=== PATIENT | female | born 1950 | race Caucasian/White ===

== ENCOUNTER 2018-08-16 16:59 | Observation (INO) ==
[2018-08-16 17:06] VITALS: BMI 31.3
--- NOTE | 2018-08-16 17:19 | DR.CP ---
HPI Time Seen Time Seen by Provider: 08/16/18 17:11 PCP Primary Care Physician: ANGELA HPI Comment HPI Comment: Patient reports that she had left sided chest pain that was very bad; it made her jaw hurt; the pain was unbearable. She took one NTG and it made the pain better. She is scheduled to go to [facility] Thursday or for a stress test, Echo. She had a equipment monitor phototypesetting but was discontinued. She states that she hurts all the time but a 10/10 when the pain hits. Complaint Chief Complaint Doctor Comments: Chest pain Chief Complaint:: "I HAD CHEST PAIN BUT IT'S BETTER NOW AFTER I TOOK THE NITRO TABLET." Self Treatment fo Chief Complaint: NONE Source History Provided: Patient Mode of Arrival Mode of Arrival: Stretcher Timing Onset of Chief Complaint: 08/16/18 PMH PMH Past Medical History: Yes Past Medical History: Arthritis and Hypertension Past Surgical History: Yes Surgical History: Cholecystectomy and Hysterectomy Family History History of Family Medical Conditions: Yes Family Medical History: Diabetes Mellitus and Hypertension Social History Does patient currently use any type of tobacco product: No Have you used tobacco products in the last 12 months: No Type of Tobacco Use: None Does any household member use tobacco: No Alcohol Use: None Do you use any recreational Drugs:: No Lives With: Spouse Lives Where: Home infectious screening In the last 2 months have you had wt loss of >10#?: NO Have you had fever, night sweats or hemotysis?: No Have you traveled outside the country in the last 6 months?: No Isolation: Standard ROS Review of Systems Constitutional: No Symptoms Reported Eyes: No Symptoms Reported ENTM: No Symptoms Reported Respiratoy: No Symptoms Reported Cardiovascular: See HPI and Chest Pain Genitourinary: No Symptoms Reported Neurological: No Symptoms Reported Musculoskeletal: Chest wall Integumentary: No Symptoms Reported Hematologic/Lymphatic: No Symptoms Reported Endocrine: No Symptoms Reported Psychiatric: Depression All Other Systems: Reviewed and Negative PE Vitals Vitals: Temperature 98.0 F Pulse Rate [Apical] 60 Pulse Rate 68 Respiratory Rate 20 Blood Pressure [Left Arm] 159/69 Blood Pressure [Right Arm] 173/80 Blood Pressure 141/67 O2 Sat by Pulse Oximetry 98 General Limitations: No Limitations General Appearance: Alert and In No Apparent Distress Head Head Exam: Normal Inspection, Atraumatic and Normocephalic Eyes Eye exam: Normal Appearance, PERRL and EOMI Chest Chest Inspection: Normal Inspection and Symmetric Chest Wall Rise Respiratory Respiratory Exam: Normal Lung Sounds Bilat and Accessory Muscle Use Respiratory Exam: Bilateral: Clear to Auscultation Cardiovascular Cardiovascular Exam: Regular Rate and Normal Rhythm Edema: Normal Abdominal Exam Abdominal Exam: Normal Inspection, Normal Bowel Sounds and Soft Extremities Extremities Exam: Normal Inspection and Full ROM Back Back Exam: Normal Inspection and Full ROM Neurologic Neurological Exam: Alert, Oriented X3 and CN II-XII Intact Psychiatric Psychiatric Exam: Normal Affect and Normal Mood Skin Skin Exam: Warm, Dry and Intact MDM Differential Diagnosis Differential Diagnosis: Angina, Chest Wall Pain, CHF and Pericarditis ROR Labs Reviewed Result Diagrams: 08/16/18 17:08/16/18 17:29 Laboratory: WBC 10.3 X10^3/uL (3.6-10.0) H 08/16/18 17: RBC 4.43 X10^6/uL (3.5-5.4) 08/16/18 17: Hgb 12.8 g/dL (12.0-16.0) 08/16/18 17: Hct 37.4 % (36.0-47.0) 08/16/18 17: MCV 84.4 fL (80.0-100.0) 08/16/18 17: MCH 28.8 pg (27.0-34.0) 08/16/18 17: MCHC 34.1 g/dL (33.0-35.0) 08/16/18 17: RDW 13.4 % (11.6-16.5) 08/16/18 17: Plt Count 191 X10^3/uL (150.0-450.0) 08/16/18 17: MPV 9.2 fL (7.4-11.0) 08/16/18 17: Neut % (Auto) 30.9 % (42.0-75.0) L 08/16/18 17: Lymph % (Auto) 59.4 % (21.0-51.0) H 08/16/18 17: [place] % (Auto) 7.2 % (0.0-13.0) 08/16/18 17: Eos % (Auto) 1.8 % (0.9-2.9) 08/16/18 17:29 Baso % (Auto) 0.7 % (0.2-1.0) 08/16/18 17:29 Neut # (Auto) 3.2 x10^3/uL (2.2-4.8) 08/16/18 17:29 Lymph # (Auto) 6.1 X10^3/uL (1.3-2.9) H 08/16/18 17:29 [place] # (Auto) 0.7 x10^3/uL (0.3-0.8) 08/16/18 17:29 Eos # (Auto) 0.2 x10^3/uL (0.0-0.2) 08/16/18 17:29 Baso # (Auto) 0.1 X10^3/uL (0.0-0.1) 08/16/18 17:29 Absolute Nucleated RBC 0.0 /100WBC 08/16/18 17:29 Sodium 139 mmol/L (136-145) 08/16/18 17:29 Corrected Sodium 140 mmol/L (136-145) 08/16/18 17:29 Potassium 3.4 mmol/L (3.5-5.1) L 08/16/18 17:29 Chloride 102 mmol/L (98-107) 08/16/18 17:29 Carbon Dioxide 26.7 mmol/L (21-32) 08/16/18 17:29 BUN 15 mg/dL (7-18) 08/16/18 17:29 Creatinine 0.88 mg/dL (0.55-1.02) 08/16/18 17:29 Est GFR (MDRD) Af Amer > 60 (>60) 08/16/18 17:29 Est GFR (MDRD) Non-Af > 60 (>60) 08/16/18 17:29 Glucose 145 mg/dL (65-99) H 08/16/18 17:29 Calcium 9.8 mg/dL (8.5-10.1) 08/16/18 17:29 Corrected Calcium TNP 08/16/18 17:29 Magnesium 2.0 mg/dL (1.7-2.9) 08/16/18 17:29 Total Bilirubin 0.40 mg/dL (0.2-1.0) 08/16/18 17:29 AST 49 Units/L (15-37) H 08/16/18 17:29 ALT 35 Units/L (12-78) 08/16/18 17:29 Alkaline Phosphatase 93 Units/L (46-116) 08/16/18 17:29 Creatine Kinase 133 Units/L (26-192) 08/16/18 23:10 CK-MB (CK-2) < 1.0 ng/mL (0-4.0) 08/16/18 23:10 CK/CKMB % Calc 0.8 % (<4) 08/16/18 23:10 Troponin I < 0.02 ng/mL (0-1.5) 08/16/18 23:10 Total Protein 7.6 g/dL (6.4-8.2) 08/16/18 17: Albumin 3.6 g/dL (3.4-5.0) 08/16/18 17: Globulin 4.0 g/dL (2.5-4.5) 08/16/18 17: Albumin/Globulin Ratio 0.9 Ratio (1.1-2.1) L 08/16/18 17:29 Specimen Type Clean catch urine 08/16/18 20: Urine Color Yellow (YELLOW) 08/16/18 20: Urine Appearance Slightly hazy (CLEAR) 08/16/18 20:30 Urine pH 5.0 (5.0 - 8.0) 08/16/18 20:30 Ur Specific [place] 1.015 (1.000-1.030) 08/16/18 20:30 Urine Protein Negative (NEGATIVE) 08/16/18 20: Urine Glucose (UA) Negative (NEGATIVE) 08/16/18 20:30 Urine Ketones Negative (NEGATIVE) 08/16/18 20:30 Urine Occult Blood 2+ (NEGATIVE) 08/16/18 20: Urine Nitrite Negative (NEGATIVE) 08/16/18 20: Urine Bilirubin Negative (NEGATIVE) 08/16/18 20: Urine Urobilinogen Normal (NORMAL) 08/16/18 20:30 Ur Leukocyte Esterase 2+ (NEGATIVE) 08/16/18 20:30 Urine RBC 5-10 /HPF (NONE SEEN) 08/16/18 20:30 Urine WBC 5-10 /HPF (NONE SEEN) 08/16/18 20:30 Ur Squamous Epith Cells Few /HPF (NEGATIVE) 08/16/18 20:30 Urine Bacteria 1+ /HPF (NEGATIVE) 08/16/18 20:30 Ur Culture Indicated? Yes/culture set up 08/16/18 20:30
[2018-08-16 17:41] LABS: BASOPHILS # (AUTO) 0.1 X10^3/uL (0.0-0.1); BASOPHILS % (AUTO) 0.7 % (0.2-1.0); EOSINOPHILS # (AUTO) 0.2 x10^3/uL (0.0-0.2); EOSINOPHILS % (AUTO) 1.8 % (0.9-2.9); HEMATOCRIT 37.4 % (36.0-47.0); HEMOGLOBIN 12.8 g/dL (12.0-16.0); LYMPHOCYTES # (AUTO) 6.1 X10^3/uL (1.3-2.9); LYMPHOCYTES % (AUTO) 59.4 % (21.0-51.0); MEAN CORPUSCULAR HEMOGLOBIN 28.8 pg (27.0-34.0); MEAN CORPUSCULAR HGB CONC 34.1 g/dL (33.0-35.0); MEAN CORPUSCULAR VOLUME 84.4 fL (80.0-100.0); MEAN PLATELET VOLUME 9.2 fL (7.4-11.0); MONOCYTES # (AUTO) 0.7 x10^3/uL (0.3-0.8); MONOCYTES % (AUTO) 7.2 % (0.0-13.0); NEUTROPHILS # (AUTO) 3.2 x10^3/uL (2.2-4.8); NEUTROPHILS % (AUTO) 30.9 % (42.0-75.0); PLATELET COUNT 191 X10^3/uL (150.0-450.0); RED BLOOD COUNT 4.43 X10^6/uL (3.5-5.4); RED CELL DISTRIBUTION WIDTH 13.4 % (11.6-16.5); WHITE BLOOD COUNT 10.3 X10^3/uL (3.6-10.0)
[2018-08-16 17:58] LABS: ALANINE AMINOTRANSFERASE 35 Units/L (12-78); ALBUMIN 3.6 g/dL (3.4-5.0); ALKALINE PHOSPHATASE 93 Units/L (46-116); ASPARTATE AMINO TRANSFERASE 49 Units/L (15-37); BLOOD UREA NITROGEN 15 mg/dL (7-18); CALCIUM 9.8 mg/dL (8.5-10.1); CARBON DIOXIDE 26.7 mmol/L (21-32); CHLORIDE 102 mmol/L (98-107); CKMB % 0.8 % (<4); COR NA(FOR HYPERGLY) 140 mmol/L (136-145); CREATINE KINASE 134 Units/L (26-192); CREATINE KINASE MB 1.1 ng/mL (0-4.0); CREATININE 0.88 mg/dL (0.55-1.02); SODIUM 139 mmol/L (136-145); TOTAL PROTEIN 7.6 g/dL (6.4-8.2); TROPONIN I < 0.02 ng/mL (0-1.5); eGFR NON BLACK RACES > 60 (>60)
--- NOTE | 2018-08-16 18:40 | RAD ---
STUDY: CHEST, ONE VIEW History: Acute chest pain. Shortness of breath. Comparison: November 20, 2017. Findings: The trachea is midline. The lungs are clear of consolidation, significant infiltrate, effusion, or pneumothorax. The cardiac silhouette, mediastinum and osseous structures are unremarkable. IMPRESSION: 1. No evidence of acute cardiopulmonary abnormality. Reported By:
[2018-08-16] MEDS: VOLTAREN 1 % GEL MULTI DOSE TUBE TOP SCH (20:17)
[2018-08-16] MEDS: PLAQUENIL PO SCH (20:17)
[2018-08-16 21:06] LABS: BILIRUBIN,URINE NEGATIVE (NEGATIVE); BLOOD/HEMOGLOBIN,URINE 2+ (NEGATIVE); GLUCOSE, URINE NEGATIVE (NEGATIVE); KETONES,URINE NEGATIVE (NEGATIVE); LEUKOCYTE ESTERASE ,URINE 2+ (NEGATIVE); NITRITES,URINE NEGATIVE (NEGATIVE); PROTEIN,URINE NEGATIVE (NEGATIVE); UROBILINOGEN,URINE NORMAL (NORMAL)
[2018-08-16 21:10] LABS: APPEARANCE,URINE SLIGHTLY HAZY (CLEAR); COLOR,URINE YELLOW (YELLOW)
[2018-08-16 21:11] LABS: BACTERIA,URINE 1+ /HPF (NEGATIVE); SQUAMOUS EPITHELIAL CELL,UR FEW /HPF (NEGATIVE)
[2018-08-16] MEDS: XANAX PO SCH (21:21)
[2018-08-16] MEDS: FLEXERIL TAB 10 MG PO SCH (21:21)
[2018-08-16] MEDS ORDERED: KLOR-CON PO PRN (21:22)
[2018-08-16] MEDS ORDERED: K-DUR TAB 20 MEQ PO PRN (21:22)
[2018-08-16] MEDS ORDERED: POTASSIUM CHL 60 MEQ/NS 0.45% 500 ML IV PRN (21:22)
[2018-08-16] MEDS ORDERED: POTASSIUM CHLORIDE LIQ 20 MEQ UDC PO PRN (21:22)
[2018-08-16] MEDS ORDERED: MICRO K EXTEN CAP 10 MEQ PO PRN (21:22)
[2018-08-16] MEDS ORDERED: MAGNESIUM SULFATE 1 GRAM/100 mL PREMIX 1 GM/100 ML BAG IV PRN (21:22)
[2018-08-16] MEDS ORDERED: POTASSIUM CHL 40 MEQ/NS 0.45% 500 ML IV PRN (21:22)
[2018-08-16] MEDS ORDERED: K-RIDER 10 MEQ/NS 100 ML 10 MEQ/100 ML BAG IV PRN (21:22)
[2018-08-16 23:42] LABS: CKMB % 0.8 % (<4); CREATINE KINASE 133 Units/L (26-192); CREATINE KINASE MB < 1.0 ng/mL (0-4.0); TROPONIN I < 0.02 ng/mL (0-1.5)
[2018-08-17] MEDS ORDERED: ROCEPHIN VIAL 1 GRAM ONE (01:40)
[2018-08-17] MEDS: ROCEPHIN VIAL 1 GRAM IVP SCH ×2 (02:00→08:29)
[2018-08-17] MEDS: XANAX PO SCH (05:40)
[2018-08-17] MEDS: FLEXERIL TAB 10 MG PO SCH (05:40)
[2018-08-17 05:41] LABS: CHOL/HDL RATIO 3.8 (0.0-5.0); CHOLESTEROL 106 mg/dL (0-200); CKMB % 0.9 % (<4); CREATINE KINASE 114 Units/L (26-192); HDL CHOLESTEROL 28 mg/dL (40-60); TRIGLYCERIDES 127 mg/dL (0-150); TROPONIN I < 0.02 ng/mL (0-1.5)
[2018-08-17 07:53] VITALS: BP 136/62
[2018-08-17] MEDS ORDERED: PHARMACY CONSULT - DOSE _____ XX SCH (08:00)
[2018-08-17] MEDS: PLAQUENIL PO SCH (08:29)
[2018-08-17] MEDS: VOLTAREN 1 % GEL MULTI DOSE TUBE TOP SCH (08:43)
[2018-08-17] MEDS ORDERED: PROTONIX TAB 40 MG PO SCH (09:00)
[2018-08-17] MEDS ORDERED: ZyrTEC TAB 10 MG PO SCH (09:00)
[2018-09-15] MEDS ORDERED: VITAMIN B-12 INJ IM SCH (09:00)
== END 2018-08-17 11:15 | disposition home or self-care (01) ==
LOC: ER 17:00 → MED/SURG 17:00
PROVIDERS: ADMIT Obstetrics & Gynecology Obstetrics; ATTEND Obstetrics & Gynecology Obstetrics
DX: E11.65 Type 2 diabetes mellitus with hyperglycemia; K21.9 Gastro-esophageal reflux disease without esophagitis; G89.29 Other chronic pain; R07.9 Chest pain, unspecified; M35.3 Polymyalgia rheumatica; N39.0 Urinary tract infection, site not specified; R94.31 Abnormal electrocardiogram [ECG] [EKG]; F41.8 Other specified anxiety disorders
CPT/HCPCS: 36415; 71010; 71045; 80053; 80061; 81001; 82550; 82553; 83735; 84484; 85025; 87086; 93005; 94760; 96365; 96374; 99284; A4216; G0378; J0696

== ENCOUNTER 2020-04-09 12:37 | Inpatient (IN) ==
[2020-04-09 12:51] VITALS: BMI 33.7
[2020-04-09] MEDS ORDERED: ACCUNEB 1.25 MG NEBULE NEB ONE (13:07)
[2020-04-09] MEDS ORDERED: DECADRON INJ IVP ONE (13:07)
--- NOTE | 2020-04-09 13:15 | DR.SOBA ---
HPI Time Seen Time Seen by Provider: 04/09/20 12:43 Complaints Chief Complaint Doctors Comments: cc; SOB hpi: pt presents via EMS secondary to SPB. She was seen in this ED on 04/06 and diagnosed with COVID and very mild pneumonia. She states she is getting worse + WILLIS no orthopnea cough is dry no hemoptysis she states she is very weak gets worse with any exertion get better with rest PMH PMH Past Medical History: Hypertension Past Surgical History: Yes Surgical History: Unknown Family History Family Medical History: Diabetes Mellitus and Hypertension Social History Do you use any recreational Drugs:: No ROS Review of Systems Constitutional: Chills, Diaphoresis, Fever, Malaise, Weakness, Fatigue and Loss of Appetite Eyes: No Symptoms Reported ENTM: No Symptoms Reported Respiratoy: Non-Productive Cough and Short of Breath; negative Hemoptysis Cardiovascular: No Symptoms Reported Gastrointestinal/Abdominal: Food Intolerance Genitourinary: No Symptoms Reported Neurological: No Symptoms Reported Musculoskeletal: Muscle Pain Integumentary: No Symptoms Reported Hematologic/Lymphatic: No Symptoms Reported Endocrine: No Symptoms Reported Psychiatric: No Symptoms Reported All Other Systems: Reviewed and Negative PE Vital Signs Vitals: Temperature 98.2 F Pulse Rate 81 Respiratory Rate 24 Blood Pressure [Left Arm] 136/62 Blood Pressure [Right Arm] 139/63 Blood Pressure 147/65 O2 Sat by Pulse Oximetry 94 General Limitations: No Limitations General Appearance: Alert, In No Apparent Distress and Anxious Head Head Exam: Normal Inspection and Atraumatic Eyes Eye exam: Normal Appearance, PERRL and EOMI; negative Scleral Icterus and Conjunctival Injection ENT ENT Exam: Normal Exam, Normal Oropharynx, Normal External Ear Exam and Mucous Membranes Moist Neck Neck Exam: Normal Inspection, Full ROM and Trachea Midline; negative Tenderness, Meningismus, Lymphadenopathy and Thyromegaly Chest Chest Inspection: Symmetric Chest Wall Rise Respiratory Respiratory Exam: Left: Rhonchi and Left: Crackles and Lower: Rhonchi and Lower: Crackles Cardiovascular Cardiovascular Exam: Regular Rate and Normal Rhythm Abdominal Exam Abdominal Exam: Normal Inspection, Normal Bowel Sounds and Soft Extremities Extremities Exam: Normal Inspection and Full ROM; negative Tenderness Back Back Exam: Normal Inspection and Full ROM; negative Tenderness Neurologic Neurological Exam: Alert, Oriented X3 and Normal Gait Psychiatric Psychiatric Exam: Normal Affect and Anxious; negative Depressed and Agitated Skin Skin Exam: Warm, Dry, Intact and Normal Color COURSE Reevaluation 1st: Improved (Dr Jimenez accepted 1531) 2nd: Worsened ROR Labs Reviewed Laboratory Results Reviewed?: Yes Result Diagrams: 04/09/20 13:25 04/09/20 13:25 Laboratory: WBC 7.3 X10^3/uL (3.6-10.0) 04/09/20 13:25 RBC 4.59 X10^6/uL (3.5-5.4) 04/09/20 13:25 Hgb 12.8 g/dL (12.0-16.0) 04/09/20 13:25 Hct 38.2 % (36.0-47.0) 04/09/20 13:25 MCV 83.2 fL (80.0-100.0) 04/09/20 13:25 MCH 27.8 pg (27.0-34.0) 04/09/20 13:25 MCHC 33.4 g/dL (33.0-35.0) 04/09/20 13:25 RDW 13.8 % (11.6-16.5) 04/09/20 13:25 Plt Count 172 X10^3/uL (150.0-450.0) 04/09/20 13:25 MPV 8.6 fL (7.4-11.0) 04/09/20 13:25 Neut % (Auto) 55.2 % (42.0-75.0) 04/09/20 13:25 Lymph % (Auto) 35.6 % (21.0-51.0) 04/09/20 13:25 [place] % (Auto) 8.8 % (0.0-13.0) 04/09/20 13:25 Eos % (Auto) 0.1 % (0.9-2.9) L 04/09/20 13:25 Baso % (Auto) 0.3 % (0.2-1.0) 04/09/20 13:25 Neut # (Auto) 4.0 x10^3/uL (2.2-4.8) 04/09/20 13:25 Lymph # (Auto) 2.6 X10^3/uL (1.3-2.9) 04/09/20 13:25 [place] # (Auto) 0.6 x10^3/uL (0.3-0.8) 04/09/20 13:25 Eos # (Auto) 0.0 x10^3/uL (0.0-0.2) 04/09/20 13:25 Baso # (Auto) 0.0 X10^3/uL (0.0-0.1) 04/09/20 13:25 Absolute Nucleated RBC 0.1 /100WBC 04/09/20 13:25 PT 13.8 SECONDS (11.8-14.3) 04/09/20 13:25 INR Target Range - 04/09/20 13:25 INR 1.09 (0.8-1.3) 04/09/20 13:25 APTT 28.2 SECONDS (22.9-36.5) 04/09/20 13:25 PTT Comment - 04/09/20 13:25 D-Dimer 0.53 ug/ml (0.0-0.57) 04/09/20 13:25 Sample Site Rra 04/09/20 14:36 ABG pH 7.430 (7.35-7.45) 04/09/20 14:36 ABG pCO2 46.0 mmHg (35.0-45.0) H 04/09/20 14:36 ABG pO2 80.0 mmHg (80.0-100.0) 04/09/20 14:36 ABG HCO3 30.5 mmol/L (22-26) H* 04/09/20 14:36 ABG O2 Saturation 96.0 % (90-100) 04/09/20 14:36 ABG Base Excess 5.3 mmol/L (-2.0-2.0) H 04/09/20 14:36 Aurelio Test Pos 04/09/20 14:36 A-a Gradient 148.0 mmHg 04/09/20 14:36 FiO2 40.0 04/09/20 14:36 Blood Gas Comments Pt jovany well eb 04/09/20 14:36 Sodium 136 mmol/L (136-145) 04/09/20 13:25 Corrected Sodium TNP 04/09/20 13:25 Potassium 3.7 mmol/L (3.5-5.1) 04/09/20 13:25 Chloride 99 mmol/L (98-107) 04/09/20 13:25 Carbon Dioxide 28.1 mmol/L (21-32) 04/09/20 13:25 BUN 15 mg/dL (7-18) 04/09/20 13:25 Creatinine 0.84 mg/dL (0.55-1.02) 04/09/20 13:25 Est GFR (MDRD) Af Amer > 60 (>60) 04/09/20 13:25 Est GFR (MDRD) Non-Af > 60 (>60) 04/09/20 13:25 Glucose 104 mg/dL (65-99) H 04/09/20 13:25 Calcium 9.0 mg/dL (8.5-10.1) 04/09/20 13:25 Corrected Calcium 9.6 mg/dL (8.5-10.1) 04/09/20 13:25 Magnesium 2.1 mg/dL (1.7-2.9) 04/09/20 13:25 Total Bilirubin 0.40 mg/dL (0.2-1.0) 04/09/20 13:25 AST 28 Units/L (15-37) 04/09/20 13:25 ALT 21 Units/L (12-78) 04/09/20 13:25 Alkaline Phosphatase 78 Units/L (46-116) 04/09/20 13:25 Creatine Kinase 49 Units/L (26-192) 04/09/20 13:25 CK-MB (CK-2) < 1.0 ng/mL (0-4.0) 04/09/20 13:25 CK/CKMB % Calc 2.0 % (<4) 04/09/20 13:25 Troponin I < 0.02 ng/mL (0-1.5) 04/09/20 13:25 B-Natriuretic Peptide 21.3 pg/mL (0-79) 04/09/20 13:25 Total Protein 7.2 g/dL (6.4-8.2) 04/09/20 13:25 Albumin 3.2 g/dL (3.4-5.0) L 04/09/20 13:25 Globulin 4.0 g/dL (2.5-4.5) 04/09/20 13:25 Albumin/Globulin Ratio 0.8 Ratio (1.1-2.1) L 04/09/20 13:25 XRAY XRAY Interpreted by: Radiologist X-ray Results: xr compatible with Covid pna recommend f/u CT ct without interest EKG Rate: 97 [place]: Normal Rhythm: NSR Block: None Hypertrophy: LVH ST: Normal Opioid Opioid Risk Tool Age (Misael box if 16-45): No History of Preadolescent Sexual Abuse: No Total: 0 Total Score Risk Category: Low Risk Copyright: Mejia predicting aberrant behaviors Diagnosis Discharge Problem: Pneumonia, Hypoxia, COVID-19, Acute dyspnea Instructions Forms: Social Distancing
[2020-04-09] MEDS ORDERED: DECADRON INJ ONE (13:18)
[2020-04-09] MEDS ORDERED: ZOFRAN INJ 4 MG VIAL IVP ONE (13:23)
[2020-04-09] MEDS ORDERED: ZOFRAN INJ 4 MG VIAL ONE (13:24)
[2020-04-09] MEDS ORDERED: PROVENTIL NEB TX 0.083% 2.5MG/ 3ML ONE (13:29)
[2020-04-09] MEDS: PROVENTIL NEB TX 0.083% 2.5MG/ 3ML NEB ONE ×2 (13:32→14:52)
--- NOTE | 2020-04-09 13:35 | RAD ---
HISTORYSOB, COVIDSTUDYCHEST, 1 VIEWCOMPARISONChest radiograph from 04/06/2020.TECHNIQUEAP view of the chestFINDINGSCardiac and mediastinal contours are within normal limits. Worsened appearance of bilateral airspace disease compared to prior, predominantly perihilar. Blunted left costophrenic sulcus. No pneumothorax. Nodular right upper lobe opacity measuring 12 mm.IMPRESSIONWorsened airspace disease consistent with COVID 19 pneumonia. Suspect small left pleural effusion.Recommend follow-up CT to evaluate right upper lobe pulmonary nodule.Electronically signed by: Guido Amaya (Apr 09, 2020 13:33:13)
[2020-04-09] MEDS ORDERED: ZITHROMAX INJ 500 MG VIAL 500 MG in NS 250 ML IV 250 ML IV SCH (13:40)
[2020-04-09 13:42] LABS: BASOPHILS % (AUTO) 0.3 % (0.2-1.0); EOSINOPHILS % (AUTO) 0.1 % (0.9-2.9); HEMATOCRIT 38.2 % (36.0-47.0); HEMOGLOBIN 12.8 g/dL (12.0-16.0); LYMPHOCYTES # (AUTO) 2.6 X10^3/uL (1.3-2.9); LYMPHOCYTES % (AUTO) 35.6 % (21.0-51.0); MEAN CORPUSCULAR HEMOGLOBIN 27.8 pg (27.0-34.0); MEAN CORPUSCULAR HGB CONC 33.4 g/dL (33.0-35.0); MEAN CORPUSCULAR VOLUME 83.2 fL (80.0-100.0); MEAN PLATELET VOLUME 8.6 fL (7.4-11.0); MONOCYTES # (AUTO) 0.6 x10^3/uL (0.3-0.8); MONOCYTES % (AUTO) 8.8 % (0.0-13.0); NEUTROPHILS % (AUTO) 55.2 % (42.0-75.0); PLATELET COUNT 172 X10^3/uL (150.0-450.0); RED BLOOD COUNT 4.59 X10^6/uL (3.5-5.4); RED CELL DISTRIBUTION WIDTH 13.8 % (11.6-16.5); WHITE BLOOD COUNT 7.3 X10^3/uL (3.6-10.0)
[2020-04-09 14:10] LABS: BLOOD UREA NITROGEN 15 mg/dL (7-18); CARBON DIOXIDE 28.1 mmol/L (21-32); CHLORIDE 99 mmol/L (98-107); CREATININE 0.84 mg/dL (0.55-1.02); SODIUM 136 mmol/L (136-145); TROPONIN I < 0.02 ng/mL (0-1.5); eGFR NON BLACK RACES > 60 (>60)
[2020-04-09 14:15] LABS: ALANINE AMINOTRANSFERASE 21 Units/L (12-78); ALBUMIN 3.2 g/dL (3.4-5.0); ALKALINE PHOSPHATASE 78 Units/L (46-116); ASPARTATE AMINO TRANSFERASE 28 Units/L (15-37); COR CA(FOR HYPOALB) 9.6 mg/dL (8.5-10.1); CREATINE KINASE 49 Units/L (26-192); CREATINE KINASE MB < 1.0 ng/mL (0-4.0); MAGNESIUM 2.1 mg/dL (1.7-2.9); TOTAL PROTEIN 7.2 g/dL (6.4-8.2)
[2020-04-09] MEDS ORDERED: ZITHROMAX INJ 500 MG VIAL IV ONE (14:15)
[2020-04-09] MEDS ORDERED: NS 500 ML IV 500 ML IV ONE (14:15)
[2020-04-09 14:41] LABS: ABG ALLEN TEST POS; ABG BASE EXCESS 5.3 mmol/L (-2.0-2.0); ABG HCO3 30.5 mmol/L (22-26)
--- NOTE | 2020-04-09 15:04 | CT ---
HISTORYSOB, COVIDSTUDYCHEST W/O CONCOMPARISONNoneTECHNIQUEMultiple axial images of the chest were obtained from the thoracic inlet to the upper abdomen without the administration of IV contrast. Dose reduction techniques including Automated Exposure Control (AEC) and adjustment of mA and kV were utilized.FINDINGSThe mediastinum does not demonstrate significant pathological lymphadenopathy. There is no pericardial effusion observed. The thoracic aorta is normal in its contour without evidence for aneurysmal dilatation.Evaluation of the lung parenchyma demonstrates scattered ground-glass opacities throughout the lungs compatible history of COVID-19 pneumonia.. No pulmonary nodule or mass can be identified. The bony thorax is unremarkable in its appearance . The visualized portions of the upper abdomen are grossly unremarkable .IMPRESSIONScattered ground-glass opacities throughout the lungs compatible history of COVID-19 pneumonia..Electronically signed by: MINDA KYLE (Apr 09, 2020 15:02:58)
[2020-04-09] MEDS ORDERED: PROMETHAZINE DM PO PRN (16:00)
[2020-04-09] MEDS ORDERED: REMDESIVIR 200 MG in NS 250 ML IV 250 ML IV ONE (16:00)
--- NOTE | 2020-04-09 16:21 | DR.SOBA ---
HPI Time Seen Time Seen by Provider: 04/09/20 12:43 Primary Care Physician Primary Care Physician: MANI CEJA Complaints Chief Complaint:: PT C/O > SOB, PT IS COVID POSTIVE OF 2 WEEKS AGO , PT IS ON HOME 02 2 LMP UPON EMS ARRIVAL PT'S O2 IS 87 EMS > PT TO 6 LPM HER SATS > 94%..BR Self Treatment fo Chief Complaint: PT C/O < APPETITE, DIARRHEA, NOT BEING ABLE TO BATHE OR COOK FOOD , PTS LUNGS ARE CLEAR NO DISTRESS NOTED, BR COVID-19 Coronavirus risk:travel/contact w/high risk person: No Has patient experienced Coronavirus symptoms: Yes Coronavirus symptoms experienced: Shortness of Breath Source History Provided: Patient and EMS Mode of Arrival Mode of Arrival: Stretcher Timing Onset of Chief Complaint: 04/08/20 PMH PMH Past Medical History: Yes Past Medical History: Hypertension Past Medical History Comment: LUPUS Past Surgical History: Yes Surgical History: Unknown Family History History of Family Medical Conditions: Yes Family Medical History: Diabetes Mellitus and Hypertension Social History Does patient currently use any type of tobacco product: No Have you used tobacco products in the last 12 months: No Type of Tobacco Use: None Does any household member use tobacco: No Alcohol Use: None Do you use any recreational Drugs:: No Lives With: Family Lives Where: Home Travel Risk Coronavirus risk:travel/contact w/high risk person: No Has patient experienced Coronavirus symptoms: Yes Coronavirus symptoms experienced: Shortness of Breath Infectious screening In the last 2 months have you had wt loss of >10#?: NO Have you had fever, night sweats or hemotysis?: No Have you traveled outside the country in the last 6 months?: No Isolation: Droplet ROS Review of Systems Constitutional: Chills, Diaphoresis, Fever, Malaise, Weakness, Fatigue and Loss of Appetite Eyes: No Symptoms Reported ENTM: No Symptoms Reported Respiratoy: See HPI Cardiovascular: No Symptoms Reported Gastrointestinal/Abdominal: No Symptoms Reported Genitourinary: No Symptoms Reported Neurological: See HPI Musculoskeletal: Muscle Pain Hematologic/Lymphatic: No Symptoms Reported Endocrine: No Symptoms Reported All Other Systems: Reviewed and Negative PE Vital Signs Vitals: Temperature 98.2 F Pulse Rate 79 Respiratory Rate 24 Blood Pressure [Left Arm] 136/62 Blood Pressure [Right Arm] 139/63 Blood Pressure 147/65 O2 Sat by Pulse Oximetry 94 General Limitations: No Limitations General Appearance: Alert and Other (pt appears acutely ill) Head Head Exam: Normal Inspection, Atraumatic and Normocephalic Eyes Eye exam: Normal Appearance, PERRL and EOMI; negative Scleral Icterus ENT ENT Exam: Normal Exam, Normal Oropharynx, Normal External Ear Exam and Mucous Membranes Moist Neck Neck Exam: Normal Inspection, Full ROM and Trachea Midline; negative Tenderness, Meningismus and Lymphadenopathy Chest Chest Inspection: Normal Inspection and Symmetric Chest Wall Rise; negative Tenderness Respiratory Respiratory Exam: negative Accessory Muscle Use and Chest Wall Tenderness Respiratory Exam: Bilateral: Wheezing and Bilateral: Rhonchi Cardiovascular Cardiovascular Exam: Regular Rate, Normal Rhythm and Tachycardia Abdominal Exam Abdominal Exam: Normal Inspection, Normal Bowel Sounds and Soft; negative Distention and Tenderness Extremities Extremities Exam: Normal Inspection, Full ROM and Normal Capillary Refill; negative Tenderness, Edema and Joint Swelling Back Back Exam: Normal Inspection and Full ROM; negative Tenderness Neurologic Neurological Exam: Alert and Oriented X3 Psychiatric Psychiatric Exam: Normal Affect and Normal Mood Skin Skin Exam: Warm and Dry ROR Labs Reviewed Result Diagrams: 04/14/20 04:05 04/14/20 04:05 Laboratory: 04/09/20 13:55 Blood Blood Culture - Preliminary 04/09/20 13:40 Blood Blood Culture - Preliminary WBC 7.3 X10^3/uL (3.6-10.0) 04/09/20 13:25 RBC 4.59 X10^6/uL (3.5-5.4) 04/09/20 13:25 Hgb 12.8 g/dL (12.0-16.0) 04/09/20 13:25 Hct 38.2 % (36.0-47.0) 04/09/20 13:25 MCV 83.2 fL (80.0-100.0) 04/09/20 13:25 MCH 27.8 pg (27.0-34.0) 04/09/20 13:25 MCHC 33.4 g/dL (33.0-35.0) 04/09/20 13:25 RDW 13.8 % (11.6-16.5) 04/09/20 13:25 Plt Count 172 X10^3/uL (150.0-450.0) 04/09/20 13:25 MPV 8.6 fL (7.4-11.0) 04/09/20 13:25 Neut % (Auto) 55.2 % (42.0-75.0) 04/09/20 13:25 Lymph % (Auto) 35.6 % (21.0-51.0) 04/09/20 13:25 [place] % (Auto) 8.8 % (0.0-13.0) 04/09/20 13:25 Eos % (Auto) 0.1 % (0.9-2.9) L 04/09/20 13:25 Baso % (Auto) 0.3 % (0.2-1.0) 04/09/20 13:25 Neut # (Auto) 4.0 x10^3/uL (2.2-4.8) 04/09/20 13:25 Lymph # (Auto) 2.6 X10^3/uL (1.3-2.9) 04/09/20 13:25 [place] # (Auto) 0.6 x10^3/uL (0.3-0.8) 04/09/20 13:25 Eos # (Auto) 0.0 x10^3/uL (0.0-0.2) 04/09/20 13:25 Baso # (Auto) 0.0 X10^3/uL (0.0-0.1) 04/09/20 13:25 Absolute Nucleated RBC 0.1 /100WBC 04/09/20 13:25 PT 13.8 SECONDS (11.8-14.3) 04/09/20 13:25 INR Target Range - 04/09/20 13:25 INR 1.09 (0.8-1.3) 04/09/20 13:25 APTT 28.2 SECONDS (22.9-36.5) 04/09/20 13:25 PTT Comment - 04/09/20 13:25 D-Dimer 0.53 ug/ml (0.0-0.57) 04/09/20 13:25 Sample Site Rra 04/09/20 14:36 ABG pH 7.430 (7.35-7.45) 04/09/20 14:36 ABG pCO2 46.0 mmHg (35.0-45.0) H 04/09/20 14:36 ABG pO2 80.0 mmHg (80.0-100.0) 04/09/20 14:36 ABG HCO3 30.5 mmol/L (22-26) H* 04/09/20 14:36 ABG O2 Saturation 96.0 % (90-100) 04/09/20 14:36 ABG Base Excess 5.3 mmol/L (-2.0-2.0) H 04/09/20 14:36 Aurelio Test Pos 04/09/20 14:36 A-a Gradient 148.0 mmHg 04/09/20 14:36 FiO2 40.0 04/09/20 14:36 Blood Gas Comments Pt jovany well eb 04/09/20 14:36 Sodium 136 mmol/L (136-145) 04/09/20 13:25 Corrected Sodium TNP 04/09/20 13:25 Potassium 3.7 mmol/L (3.5-5.1) 04/09/20 13:25 Chloride 99 mmol/L (98-107) 04/09/20 13:25 Carbon Dioxide 28.1 mmol/L (21-32) 04/09/20 13:25 BUN 15 mg/dL (7-18) 04/09/20 13:25 Creatinine 0.84 mg/dL (0.55-1.02) 04/09/20 13:25 Est GFR (MDRD) Af Amer > 60 (>60) 04/09/20 13:25 Est GFR (MDRD) Non-Af > 60 (>60) 04/09/20 13:25 Glucose 104 mg/dL (65-99) H 04/09/20 13:25 Calcium 9.0 mg/dL (8.5-10.1) 04/09/20 13:25 Corrected Calcium 9.6 mg/dL (8.5-10.1) 04/09/20 13:25 Magnesium 2.1 mg/dL (1.7-2.9) 04/09/20 13:25 Total Bilirubin 0.40 mg/dL (0.2-1.0) 04/09/20 13:25 AST 28 Units/L (15-37) 04/09/20 13:25 ALT 21 Units/L (12-78) 04/09/20 13:25 Alkaline Phosphatase 78 Units/L (46-116) 04/09/20 13:25 Creatine Kinase 49 Units/L (26-192) 04/09/20 13:25 CK-MB (CK-2) < 1.0 ng/mL (0-4.0) 04/09/20 13:25 CK/CKMB % Calc 2.0 % (<4) 04/09/20 13:25 Troponin I < 0.02 ng/mL (0-1.5) 04/09/20 13:25 B-Natriuretic Peptide 21.3 pg/mL (0-79) 04/09/20 13:25 Total Protein 7.2 g/dL (6.4-8.2) 04/09/20 13:25 Albumin 3.2 g/dL (3.4-5.0) L 04/09/20 13:25 Globulin 4.0 g/dL (2.5-4.5) 04/09/20 13:25 Albumin/Globulin Ratio 0.8 Ratio (1.1-2.1) L 04/09/20 13:25 EKG Rate: 97 [place]: Normal Rhythm: NSR Block: None Hypertrophy: LVH ST: Normal Opioid Opioid Risk Tool Age (Misael box if 16-45): No History of Preadolescent Sexual Abuse: No Total: 0 Total Score Risk Category: Low Risk Copyright: Roberto NERI predicting aberrant behaviors Diagnosis Discharge Problem: Pneumonia, Hypoxia, COVID-19, Acute dyspnea Instructions Forms: Excuse From Work or School Precautions for COVID19 Patient Portal Social Distancing
[2020-04-09] MEDS: NS 1000 ML 1,000 ML IV SCH (16:50)
[2020-04-09] MEDS ORDERED: NS 1000 ML 1,000 ML ONE (16:50)
[2020-04-09] MEDS ORDERED: NS 250 ML IV 250 ML IV ONE (16:52)
[2020-04-09] MEDS ORDERED: REMDESIVIR IV ONE (16:52)
[2020-04-09] MEDS: NEURONTIN CAP 300 MG PO SCH ×2 (17:02→20:37)
[2020-04-09] MEDS ORDERED: IVERMECTIN ONE (17:36)
[2020-04-09] MEDS: IVERMECTIN PO SCH (17:37)
[2020-04-09] MEDS ORDERED: MICRO K EXTEN CAP 10 MEQ PO ONE (19:21)
[2020-04-09] MEDS ORDERED: VIBRAMYCIN PO ONE (19:21)
[2020-04-09] MEDS ORDERED: NS 100 ML IV 100 ML IV ONE (19:22)
[2020-04-09] MEDS ORDERED: ASCORBIC ACID INJ MULTI-DOSE VIAL IV ONE (19:22)
[2020-04-09] MEDS ORDERED: ZINC SULFATE ONE (19:22)
[2020-04-09] MEDS ORDERED: THIAMINE HCL INJ ONE (19:22)
[2020-04-09] MEDS ORDERED: ELIQUIS ONE (19:22)
[2020-04-09] MEDS ORDERED: XANAX ONE (19:22)
[2020-04-09] MEDS ORDERED: PEPCID TAB 40 MG ONE (19:22)
[2020-04-09] MEDS: ELIQUIS PO SCH (20:36)
[2020-04-09] MEDS: ASCORBIC ACID INJ MULTI-DOSE VIAL 1,500 MG in NS 100 ML IV 100 ML IV SCH (20:36)
[2020-04-09] MEDS: MICRO K EXTEN CAP 10 MEQ PO SCH (20:37)
[2020-04-09] MEDS: VIBRAMYCIN PO SCH (20:37)
[2020-04-09] MEDS: THIAMINE HCL INJ IVP SCH (20:37)
[2020-04-09] MEDS: PEPCID TAB 40 MG PO SCH (20:37)
[2020-04-09] MEDS: ZINC SULFATE PO SCH (20:38)
[2020-04-09] MEDS: PULMICORT NEB TX 0.5 MG NEB SCH (20:50)
[2020-04-09] MEDS ORDERED: ERGOCALCIFEROL PO SCH (21:00)
[2020-04-09] MEDS ORDERED: LIPITOR TAB 10 MG PO SCH (21:00)
[2020-04-09] MEDS: XANAX PO SCH (21:40)
[2020-04-10] MEDS ORDERED: ASCORBIC ACID INJ MULTI-DOSE VIAL IV ONE ×4 (02:13→19:20)
[2020-04-10] MEDS ORDERED: NS 100 ML IV 100 ML IV ONE ×4 (02:13→19:20)
[2020-04-10] MEDS: ASCORBIC ACID INJ MULTI-DOSE VIAL 1,500 MG in NS 100 ML IV 100 ML IV SCH ×4 (02:29→20:03)
[2020-04-10] MEDS ORDERED: XANAX ONE ×3 (05:07→19:20)
[2020-04-10] MEDS: XANAX PO SCH ×3 (05:49→21:00)
[2020-04-10 06:07] LABS: BASOPHILS % (AUTO) 0.1 % (0.2-1.0); HEMATOCRIT 36.8 % (36.0-47.0); HEMOGLOBIN 12.2 g/dL (12.0-16.0); LYMPHOCYTES # (AUTO) 1.9 X10^3/uL (1.3-2.9); LYMPHOCYTES % (AUTO) 39.8 % (21.0-51.0); MEAN CORPUSCULAR HEMOGLOBIN 27.9 pg (27.0-34.0); MEAN CORPUSCULAR HGB CONC 33.2 g/dL (33.0-35.0); MEAN PLATELET VOLUME 8.6 fL (7.4-11.0); MONOCYTES # (AUTO) 0.5 x10^3/uL (0.3-0.8); NEUTROPHILS # (AUTO) 2.3 x10^3/uL (2.2-4.8); NEUTROPHILS % (AUTO) 49.1 % (42.0-75.0); PLATELET COUNT 175 X10^3/uL (150.0-450.0); RED BLOOD COUNT 4.38 X10^6/uL (3.5-5.4); RED CELL DISTRIBUTION WIDTH 13.9 % (11.6-16.5); WHITE BLOOD COUNT 4.7 X10^3/uL (3.6-10.0)
[2020-04-10 06:32] LABS: ALANINE AMINOTRANSFERASE 21 Units/L (12-78); ALBUMIN 2.8 g/dL (3.4-5.0); ALKALINE PHOSPHATASE 70 Units/L (46-116); ASPARTATE AMINO TRANSFERASE 25 Units/L (15-37); BLOOD UREA NITROGEN 17 mg/dL (7-18); CALCIUM 8.9 mg/dL (8.5-10.1); CARBON DIOXIDE 29.7 mmol/L (21-32); CHLORIDE 103 mmol/L (98-107); COR CA(FOR HYPOALB) 9.9 mg/dL (8.5-10.1); COR NA(FOR HYPERGLY) 141 mmol/L (136-145); CREATININE 0.88 mg/dL (0.55-1.02); SODIUM 140 mmol/L (136-145); TOTAL PROTEIN 6.6 g/dL (6.4-8.2); eGFR NON BLACK RACES > 60 (>60)
[2020-04-10] MEDS: LEXAPRO PO SCH (08:02)
[2020-04-10] MEDS: NEURONTIN CAP 300 MG PO SCH ×4 (08:03→20:08)
[2020-04-10] MEDS: MOBIC TAB 15 MG PO SCH (08:03)
[2020-04-10] MEDS: SYNTHROID 75 mcg TAB PO SCH (08:04)
[2020-04-10] MEDS: ZIAC 5/6.25 MG PO SCH (08:04)
[2020-04-10] MEDS ORDERED: MICRO K EXTEN CAP 10 MEQ PO ONE ×2 (08:08→19:19)
[2020-04-10] MEDS ORDERED: PEPCID TAB 20 MG ONE (08:08)
[2020-04-10] MEDS ORDERED: DECADRON TAB ONE (08:09)
[2020-04-10] MEDS ORDERED: THIAMINE HCL INJ ONE ×2 (08:09→19:20)
[2020-04-10] MEDS ORDERED: VIBRAMYCIN PO ONE ×2 (08:09→19:20)
[2020-04-10] MEDS ORDERED: LIPITOR TAB 80 MG ONE (08:09)
[2020-04-10] MEDS ORDERED: ZINC SULFATE ONE ×2 (08:09→19:20)
[2020-04-10] MEDS ORDERED: REMDESIVIR IV ONE (08:10)
[2020-04-10] MEDS ORDERED: ELIQUIS ONE ×2 (08:10→19:24)
[2020-04-10] MEDS ORDERED: TRICOR TAB 160 MG ONE (08:10)
[2020-04-10] MEDS ORDERED: VITAMIN D3 125 mcg (5,000 UNITS) ONE (08:10)
[2020-04-10] MEDS ORDERED: NS 250 ML IV 250 ML IV ONE (08:11)
[2020-04-10] MEDS ORDERED: PROTONIX INJ 40 MG VIAL ONE (08:11)
[2020-04-10] MEDS: REMDESIVIR 100 MG in NS 250 ML IV 250 ML IV SCH (08:22)
[2020-04-10] MEDS: THIAMINE HCL INJ IVP SCH ×2 (08:22→20:08)
[2020-04-10] MEDS: PROTONIX INJ 40 MG VIAL IVP SCH (08:22)
[2020-04-10] MEDS: DECADRON TAB PO SCH (08:23)
[2020-04-10] MEDS: ELIQUIS PO SCH ×2 (08:24→20:09)
[2020-04-10] MEDS: PEPCID TAB 40 MG PO SCH ×2 (08:25→20:07)
[2020-04-10] MEDS: LIPITOR TAB 80 MG PO SCH (08:25)
[2020-04-10] MEDS: TRICOR TAB 160 MG PO SCH (08:26)
[2020-04-10] MEDS: ZINC SULFATE PO SCH ×2 (08:26→20:07)
[2020-04-10] MEDS: MICRO K EXTEN CAP 10 MEQ PO SCH ×2 (08:26→20:07)
[2020-04-10] MEDS: VIBRAMYCIN PO SCH ×2 (08:27→20:08)
[2020-04-10] MEDS: IVERMECTIN PO SCH (08:33)
[2020-04-10] MEDS ORDERED: VITAMIN D (1.25MG) PO SCH (09:00)
[2020-04-10] MEDS ORDERED: VITAMIN A PO SCH (09:00)
[2020-04-10] MEDS: PULMICORT NEB TX 0.5 MG NEB SCH ×2 (09:15→21:23)
[2020-04-10] MEDS: NS 1000 ML 1,000 ML IV SCH (16:00)
[2020-04-11] MEDS ORDERED: NS 100 ML IV 100 ML IV ONE ×3 (02:39→14:44)
[2020-04-11] MEDS ORDERED: ASCORBIC ACID INJ MULTI-DOSE VIAL IV ONE (02:39)
[2020-04-11] MEDS: ASCORBIC ACID INJ MULTI-DOSE VIAL 1,500 MG in NS 100 ML IV 100 ML IV SCH ×4 (02:56→20:31)
[2020-04-11] MEDS ORDERED: NS 1000 ML 1,000 ML ONE (05:21)
[2020-04-11] MEDS: XANAX PO SCH ×3 (05:33→21:00)
[2020-04-11] MEDS: NS 1000 ML 1,000 ML IV SCH ×3 (05:34→20:40)
[2020-04-11 06:47] LABS: BASOPHILS % (AUTO) 0.1 % (0.2-1.0); EOSINOPHILS % (AUTO) 0.1 % (0.9-2.9); HEMATOCRIT 34.5 % (36.0-47.0); HEMOGLOBIN 11.6 g/dL (12.0-16.0); LYMPHOCYTES # (AUTO) 2.6 X10^3/uL (1.3-2.9); LYMPHOCYTES % (AUTO) 44.6 % (21.0-51.0); MEAN CORPUSCULAR HEMOGLOBIN 28.4 pg (27.0-34.0); MEAN CORPUSCULAR HGB CONC 33.8 g/dL (33.0-35.0); MEAN CORPUSCULAR VOLUME 84.1 fL (80.0-100.0); MEAN PLATELET VOLUME 8.6 fL (7.4-11.0); MONOCYTES # (AUTO) 0.5 x10^3/uL (0.3-0.8); MONOCYTES % (AUTO) 9.5 % (0.0-13.0); NEUTROPHILS # (AUTO) 2.6 x10^3/uL (2.2-4.8); NEUTROPHILS % (AUTO) 45.7 % (42.0-75.0); PLATELET COUNT 175 X10^3/uL (150.0-450.0); RED CELL DISTRIBUTION WIDTH 13.9 % (11.6-16.5); WHITE BLOOD COUNT 5.7 X10^3/uL (3.6-10.0)
[2020-04-11 07:11] LABS: ALANINE AMINOTRANSFERASE 14 Units/L (12-78); ALBUMIN 2.5 g/dL (3.4-5.0); ALKALINE PHOSPHATASE 61 Units/L (46-116); ASPARTATE AMINO TRANSFERASE 27 Units/L (15-37); BLOOD UREA NITROGEN 26 mg/dL (7-18); CALCIUM 8.8 mg/dL (8.5-10.1); CARBON DIOXIDE 30.3 mmol/L (21-32); CHLORIDE 105 mmol/L (98-107); COR NA(FOR HYPERGLY) 142 mmol/L (136-145); SODIUM 141 mmol/L (136-145); eGFR NON BLACK RACES 59 (>60)
[2020-04-11] MEDS ORDERED: MICRO K EXTEN CAP 10 MEQ PO ONE (08:10)
[2020-04-11] MEDS ORDERED: DECADRON TAB ONE (08:11)
[2020-04-11] MEDS ORDERED: LIPITOR TAB 80 MG ONE (08:11)
[2020-04-11] MEDS ORDERED: IVERMECTIN ONE (08:11)
[2020-04-11] MEDS ORDERED: THIAMINE HCL INJ ONE (08:11)
[2020-04-11] MEDS ORDERED: VIBRAMYCIN PO ONE (08:11)
[2020-04-11] MEDS ORDERED: PEPCID TAB 40 MG ONE (08:12)
[2020-04-11] MEDS ORDERED: VITAMIN D3 125 mcg (5,000 UNITS) ONE (08:12)
[2020-04-11] MEDS ORDERED: ZINC SULFATE ONE (08:12)
[2020-04-11] MEDS ORDERED: TRICOR TAB 160 MG ONE (08:12)
[2020-04-11] MEDS ORDERED: ELIQUIS ONE (08:12)
[2020-04-11] MEDS ORDERED: NS 250 ML IV 250 ML IV ONE (08:13)
[2020-04-11] MEDS ORDERED: REMDESIVIR IV ONE (08:13)
[2020-04-11] MEDS ORDERED: PROTONIX INJ 40 MG VIAL ONE (08:13)
[2020-04-11] MEDS: DECADRON TAB PO SCH (08:26)
[2020-04-11] MEDS: ELIQUIS PO SCH ×2 (08:26→20:25)
[2020-04-11] MEDS: MICRO K EXTEN CAP 10 MEQ PO SCH ×2 (08:27→20:27)
[2020-04-11] MEDS: ZINC SULFATE PO SCH ×2 (08:28→20:25)
[2020-04-11] MEDS: IVERMECTIN PO SCH (08:28)
[2020-04-11] MEDS: VITAMIN D3 125 mcg (5,000 UNITS) PO SCH (08:28)
[2020-04-11] MEDS: THIAMINE HCL INJ IVP SCH ×2 (08:29→20:37)
[2020-04-11] MEDS: SYNTHROID 75 mcg TAB PO SCH (08:30)
[2020-04-11] MEDS: LEXAPRO PO SCH (08:30)
[2020-04-11] MEDS: ZIAC 5/6.25 MG PO SCH (08:30)
[2020-04-11] MEDS: TRICOR TAB 160 MG PO SCH (08:31)
[2020-04-11] MEDS: PEPCID TAB 40 MG PO SCH ×2 (08:31→20:26)
[2020-04-11] MEDS: MOBIC TAB 15 MG PO SCH (08:32)
[2020-04-11] MEDS: VIBRAMYCIN PO SCH ×2 (08:32→20:26)
[2020-04-11] MEDS: NEURONTIN CAP 300 MG PO SCH ×4 (08:33→20:27)
[2020-04-11] MEDS: REMDESIVIR 100 MG in NS 250 ML IV 250 ML IV SCH (08:33)
[2020-04-11] MEDS: LIPITOR TAB 80 MG PO SCH (08:34)
[2020-04-11] MEDS: PROTONIX INJ 40 MG VIAL IVP SCH (08:34)
[2020-04-11] MEDS: PULMICORT NEB TX 0.5 MG NEB SCH ×2 (08:45→22:20)
[2020-04-12] MEDS: ASCORBIC ACID INJ MULTI-DOSE VIAL 1,500 MG in NS 100 ML IV 100 ML IV SCH ×4 (02:35→20:38)
[2020-04-12] MEDS: XANAX PO SCH ×3 (05:49→22:15)
--- NOTE | 2020-04-12 06:18 | RAD ---
HISTORYCOVID+STUDYCHEST, 1 [id number]/2021TECHNIQUEAP view of the chestFINDINGSThe cardiac and mediastinal contours appear stable. Mildly worse bilateral airspace disease, worse in the left lung. Blunted costophrenic sulci. No pneumothorax. Soft tissue attenuation limits evaluation.IMPRESSIONInterval worsening of bilateral airspace disease consistent with COVID 19 pneumonia. Suspect small pleural effusions.Electronically signed by: Guido Amaya (Apr 12, 2020 06:17:27)
[2020-04-12 06:30] LABS: BASOPHILS % (AUTO) 0.1 % (0.2-1.0); HEMATOCRIT 34.7 % (36.0-47.0); HEMOGLOBIN 11.6 g/dL (12.0-16.0); LYMPHOCYTES # (AUTO) 2.8 X10^3/uL (1.3-2.9); LYMPHOCYTES % (AUTO) 46.7 % (21.0-51.0); MEAN CORPUSCULAR HEMOGLOBIN 28.1 pg (27.0-34.0); MEAN CORPUSCULAR HGB CONC 33.5 g/dL (33.0-35.0); MEAN CORPUSCULAR VOLUME 83.9 fL (80.0-100.0); MEAN PLATELET VOLUME 8.8 fL (7.4-11.0); MONOCYTES # (AUTO) 0.5 x10^3/uL (0.3-0.8); MONOCYTES % (AUTO) 7.9 % (0.0-13.0); NEUTROPHILS # (AUTO) 2.8 x10^3/uL (2.2-4.8); NEUTROPHILS % (AUTO) 45.3 % (42.0-75.0); PLATELET COUNT 188 X10^3/uL (150.0-450.0); RED BLOOD COUNT 4.13 X10^6/uL (3.5-5.4); RED CELL DISTRIBUTION WIDTH 13.6 % (11.6-16.5); WHITE BLOOD COUNT 6.1 X10^3/uL (3.6-10.0)
[2020-04-12 06:39] LABS: ALANINE AMINOTRANSFERASE 16 Units/L (12-78); ALBUMIN 2.4 g/dL (3.4-5.0); ALKALINE PHOSPHATASE 62 Units/L (46-116); ASPARTATE AMINO TRANSFERASE 27 Units/L (15-37); BLOOD UREA NITROGEN 19 mg/dL (7-18); CALCIUM 8.6 mg/dL (8.5-10.1); CARBON DIOXIDE 31.4 mmol/L (21-32); CHLORIDE 106 mmol/L (98-107); COR CA(FOR HYPOALB) 9.9 mg/dL (8.5-10.1); COR NA(FOR HYPERGLY) 143 mmol/L (136-145); CREATININE 0.83 mg/dL (0.55-1.02); SODIUM 142 mmol/L (136-145); TOTAL PROTEIN 5.8 g/dL (6.4-8.2); eGFR NON BLACK RACES > 60 (>60)
[2020-04-12 07:25] LABS: ABG BASE EXCESS 8.9 mmol/L (-2.0-2.0)
[2020-04-12 07:26] LABS: ABG ALLEN TEST POSS; ABG HCO3 34.1 mmol/L (22-26)
[2020-04-12] MEDS ORDERED: LEXAPRO ONE (08:43)
[2020-04-12] MEDS: PULMICORT NEB TX 0.5 MG NEB SCH ×2 (09:50→20:00)
[2020-04-12] MEDS: BENICAR TAB 40 MG PO SCH ×2 (09:52→10:53)
[2020-04-12] MEDS: DECADRON TAB PO SCH (09:53)
[2020-04-12] MEDS: LEXAPRO PO SCH (09:53)
[2020-04-12] MEDS: ELIQUIS PO SCH ×2 (09:53→20:39)
[2020-04-12] MEDS: IVERMECTIN PO SCH (10:07)
[2020-04-12] MEDS: LIPITOR TAB 80 MG PO SCH (10:07)
[2020-04-12] MEDS: MICRO K EXTEN CAP 10 MEQ PO SCH ×2 (10:08→20:38)
[2020-04-12] MEDS: MOBIC TAB 15 MG PO SCH (10:09)
[2020-04-12] MEDS: NEURONTIN CAP 300 MG PO SCH ×4 (10:10→20:38)
[2020-04-12] MEDS: PEPCID TAB 40 MG PO SCH ×2 (10:10→20:39)
[2020-04-12] MEDS: PROTONIX INJ 40 MG VIAL IVP SCH (10:10)
[2020-04-12] MEDS: SYNTHROID 75 mcg TAB PO SCH (10:12)
[2020-04-12] MEDS: TRICOR TAB 160 MG PO SCH (10:12)
[2020-04-12] MEDS: REMDESIVIR 100 MG in NS 250 ML IV 250 ML IV SCH (10:12)
[2020-04-12] MEDS: THIAMINE HCL INJ IVP SCH ×2 (10:12→20:39)
[2020-04-12] MEDS: VITAMIN D3 125 mcg (5,000 UNITS) PO SCH (10:13)
[2020-04-12] MEDS: VIBRAMYCIN PO SCH ×2 (10:13→20:39)
[2020-04-12] MEDS: ZIAC 5/6.25 MG PO SCH (10:13)
[2020-04-12] MEDS: ZINC SULFATE PO SCH ×2 (10:13→20:40)
[2020-04-12] MEDS: NS 1000 ML 1,000 ML IV SCH (17:51)
[2020-04-12] MEDS: TYLENOL #3 TAB (W/CODEINE) PO PRN (22:16)
[2020-04-13] MEDS: ASCORBIC ACID INJ MULTI-DOSE VIAL 1,500 MG in NS 100 ML IV 100 ML IV SCH ×4 (03:28→20:15)
[2020-04-13 04:45] LABS: ABG ALLEN TEST POS; ABG BASE EXCESS 10.1 mmol/L (-2.0-2.0)
[2020-04-13] MEDS: XANAX PO SCH ×3 (05:27→21:39)
[2020-04-13 06:05] LABS: BASOPHILS % (AUTO) 0.2 % (0.2-1.0); HEMATOCRIT 35.1 % (36.0-47.0); HEMOGLOBIN 11.8 g/dL (12.0-16.0); LYMPHOCYTES # (AUTO) 2.9 X10^3/uL (1.3-2.9); LYMPHOCYTES % (AUTO) 37.8 % (21.0-51.0); MEAN CORPUSCULAR HGB CONC 33.5 g/dL (33.0-35.0); MEAN CORPUSCULAR VOLUME 83.5 fL (80.0-100.0); MEAN PLATELET VOLUME 8.8 fL (7.4-11.0); MONOCYTES # (AUTO) 0.6 x10^3/uL (0.3-0.8); MONOCYTES % (AUTO) 7.7 % (0.0-13.0); NEUTROPHILS # (AUTO) 4.2 x10^3/uL (2.2-4.8); NEUTROPHILS % (AUTO) 54.3 % (42.0-75.0); PLATELET COUNT 192 X10^3/uL (150.0-450.0); RED BLOOD COUNT 4.21 X10^6/uL (3.5-5.4); RED CELL DISTRIBUTION WIDTH 13.8 % (11.6-16.5); WHITE BLOOD COUNT 7.7 X10^3/uL (3.6-10.0)
--- NOTE | 2020-04-13 06:08 | RAD ---
HISTORYCOVIDSTUDYCHEST, 1 VIEWCOMPARISONOne day prior.TECHNIQUEAP view of the chestFINDINGSCardiac and mediastinal contours are within normal limits. No significant change in left worse than right lung airspace and interstitial opacities. No definite pleural effusion or pneumothorax.IMPRESSIONNo significant change.Electronically signed by: Guido Amaya (Apr 13, 2020 06:07:12)
[2020-04-13 06:16] LABS: ALANINE AMINOTRANSFERASE 18 Units/L (12-78); ALBUMIN 2.4 g/dL (3.4-5.0); ALKALINE PHOSPHATASE 67 Units/L (46-116); ASPARTATE AMINO TRANSFERASE 26 Units/L (15-37); BLOOD UREA NITROGEN 18 mg/dL (7-18); CALCIUM 8.6 mg/dL (8.5-10.1); CHLORIDE 105 mmol/L (98-107); COR CA(FOR HYPOALB) 9.9 mg/dL (8.5-10.1); COR NA(FOR HYPERGLY) 142 mmol/L (136-145); CREATININE 0.81 mg/dL (0.55-1.02); SODIUM 141 mmol/L (136-145); TOTAL PROTEIN 5.8 g/dL (6.4-8.2); eGFR NON BLACK RACES > 60 (>60)
[2020-04-13] MEDS ORDERED: LEXAPRO ONE (07:29)
[2020-04-13] MEDS ORDERED: LEVAQUIN PREMIX IV 750 MG 750 MG/150 ML BAG IV ONE (08:06)
[2020-04-13] MEDS: DECADRON TAB PO SCH (08:10)
[2020-04-13] MEDS: BENICAR TAB 40 MG PO SCH (08:10)
[2020-04-13] MEDS: ELIQUIS PO SCH ×2 (08:12→20:16)
[2020-04-13] MEDS: IVERMECTIN PO SCH (08:12)
[2020-04-13] MEDS: LEXAPRO PO SCH (08:12)
[2020-04-13] MEDS: LIPITOR TAB 80 MG PO SCH (08:13)
[2020-04-13] MEDS: NEURONTIN CAP 300 MG PO SCH ×4 (08:13→20:16)
[2020-04-13] MEDS: MOBIC TAB 15 MG PO SCH (08:13)
[2020-04-13] MEDS: MICRO K EXTEN CAP 10 MEQ PO SCH ×2 (08:13→20:16)
[2020-04-13] MEDS: PEPCID TAB 40 MG PO SCH ×2 (08:13→20:16)
[2020-04-13] MEDS: VITAMIN D3 125 mcg (5,000 UNITS) PO SCH (08:14)
[2020-04-13] MEDS: SYNTHROID 75 mcg TAB PO SCH (08:14)
[2020-04-13] MEDS: THIAMINE HCL INJ IVP SCH ×2 (08:14→20:17)
[2020-04-13] MEDS: PROTONIX INJ 40 MG VIAL IVP SCH (08:14)
[2020-04-13] MEDS: TRICOR TAB 160 MG PO SCH (08:14)
[2020-04-13] MEDS: ZINC SULFATE PO SCH ×2 (08:15→20:17)
[2020-04-13] MEDS: PULMICORT NEB TX 0.5 MG NEB SCH ×2 (09:00→20:05)
[2020-04-13] MEDS: NORVASC TAB 10 MG PO SCH (09:18)
--- NOTE | 2020-04-13 12:32 | RAD ---
HISTORYCentral line placementSTUDYChest AP [id number]/2021 3:20 a.m.FINDINGSThere is a new right IJ line with its tip in the right atrium. Retraction of 4-5 cm should be considered. Heart remains enlarged. No congestive heart failure is noted. Bilateral infiltrates are again identified and are unchanged. Bony thorax is unremarkable.IMPRESSIONRight IJ line tip right atrium. Retraction of 4 5 cm should be considered.No other changes when compared with the film earlier the same dayElectronically signed by: EDUARDO RANGEL (Apr 13, 2020 12:31:01)
[2020-04-13] MEDS ORDERED: XYLOCAINE 1 % (PLAIN) ONE (12:58)
--- NOTE | 2020-04-13 13:46 | RAD ---
Chest AP portableIndication: Repositioning of central lineCOMPARISONRadiograph from earlier the same day reviewed.FINDINGSRight IJ catheter tip is at the cavoatrial junction. Heart size is prominent. Patchy bilateral pulmonary opacities are unchanged from the prior.IMPRESSIONRight IJ catheter projects over the cavoatrial junction without pneumothorax.Pulmonary opacities of viral pneumonitis again notedElectronically signed by: HAYDEE PARTIDA (Apr 13, 2020 13:44:48)
[2020-04-13] MEDS: ZEBETA TAB 5 MG PO SCH (14:22)
[2020-04-13] MEDS: NS 1000 ML 1,000 ML IV SCH (16:36)
[2020-04-14] MEDS: ASCORBIC ACID INJ MULTI-DOSE VIAL 1,500 MG in NS 100 ML IV 100 ML IV SCH ×4 (02:28→20:27)
[2020-04-14] MEDS: NORVASC TAB 10 MG PO SCH ×2 (04:59→08:39)
[2020-04-14] MEDS: XANAX PO SCH ×2 (05:00→14:39)
[2020-04-14 05:04] LABS: ABG BASE EXCESS 6.4 mmol/L (-2.0-2.0)
[2020-04-14 05:05] LABS: ABG ALLEN TEST POS; ABG HCO3 32.3 mmol/L (22-26)
[2020-04-14 05:46] LABS: BASOPHILS % (AUTO) 0.2 % (0.2-1.0); EOSINOPHILS % (AUTO) 0.1 % (0.9-2.9); HEMOGLOBIN 11.4 g/dL (12.0-16.0); LYMPHOCYTES % (AUTO) 26.1 % (21.0-51.0); MEAN CORPUSCULAR HEMOGLOBIN 27.3 pg (27.0-34.0); MEAN CORPUSCULAR HGB CONC 32.7 g/dL (33.0-35.0); MEAN CORPUSCULAR VOLUME 83.5 fL (80.0-100.0); MEAN PLATELET VOLUME 9.2 fL (7.4-11.0); MONOCYTES # (AUTO) 0.9 x10^3/uL (0.3-0.8); MONOCYTES % (AUTO) 7.5 % (0.0-13.0); NEUTROPHILS # (AUTO) 7.5 x10^3/uL (2.2-4.8); NEUTROPHILS % (AUTO) 66.1 % (42.0-75.0); PLATELET COUNT 203 X10^3/uL (150.0-450.0); RED BLOOD COUNT 4.19 X10^6/uL (3.5-5.4); RED CELL DISTRIBUTION WIDTH 13.4 % (11.6-16.5); WHITE BLOOD COUNT 11.4 X10^3/uL (3.6-10.0)
[2020-04-14 05:58] LABS: ALANINE AMINOTRANSFERASE 18 Units/L (12-78); ALBUMIN 2.4 g/dL (3.4-5.0); ALKALINE PHOSPHATASE 68 Units/L (46-116); ASPARTATE AMINO TRANSFERASE 23 Units/L (15-37); BLOOD UREA NITROGEN 17 mg/dL (7-18); CALCIUM 8.7 mg/dL (8.5-10.1); CARBON DIOXIDE 33.9 mmol/L (21-32); CHLORIDE 105 mmol/L (98-107); COR NA(FOR HYPERGLY) 142 mmol/L (136-145); CREATININE 0.66 mg/dL (0.55-1.02); SODIUM 141 mmol/L (136-145); TOTAL PROTEIN 5.4 g/dL (6.4-8.2); eGFR NON BLACK RACES > 60 (>60)
[2020-04-14] MEDS ORDERED: LEXAPRO ONE (07:02)
[2020-04-14] MEDS: ELIQUIS PO SCH ×2 (08:38→20:28)
[2020-04-14] MEDS: DECADRON TAB PO SCH (08:38)
[2020-04-14] MEDS: BENICAR TAB 40 MG PO SCH (08:38)
[2020-04-14] MEDS: LEXAPRO PO SCH (08:38)
[2020-04-14] MEDS: MOBIC TAB 15 MG PO SCH (08:39)
[2020-04-14] MEDS: MICRO K EXTEN CAP 10 MEQ PO SCH ×2 (08:39→20:28)
[2020-04-14] MEDS: NEURONTIN CAP 300 MG PO SCH ×4 (08:39→20:29)
[2020-04-14] MEDS: LIPITOR TAB 80 MG PO SCH (08:39)
[2020-04-14] MEDS: PEPCID TAB 40 MG PO SCH ×2 (08:40→20:30)
[2020-04-14] MEDS: SYNTHROID 75 mcg TAB PO SCH (08:40)
[2020-04-14] MEDS: THIAMINE HCL INJ IVP SCH ×2 (08:40→20:29)
[2020-04-14] MEDS: PROTONIX INJ 40 MG VIAL IVP SCH (08:40)
[2020-04-14] MEDS: VITAMIN D3 125 mcg (5,000 UNITS) PO SCH (08:41)
[2020-04-14] MEDS: ZEBETA TAB 5 MG PO SCH (08:41)
[2020-04-14] MEDS: TRICOR TAB 160 MG PO SCH (08:41)
[2020-04-14] MEDS: ZINC SULFATE PO SCH ×2 (08:41→20:28)
[2020-04-14] MEDS: PULMICORT NEB TX 0.5 MG NEB SCH ×2 (09:33→20:50)
[2020-04-14] MEDS: LEVAQUIN PREMIX IV 750 MG 750 MG/150 ML BAG IV SCH (10:09)
[2020-04-14] MEDS: TYLENOL #3 TAB (W/CODEINE) PO PRN ×2 (13:18→20:28)
[2020-04-14] MEDS: NS 1000 ML 1,000 ML IV SCH (15:38)
[2020-04-15] MEDS: XANAX PO SCH ×3 (03:10→14:39)
[2020-04-15] MEDS: ASCORBIC ACID INJ MULTI-DOSE VIAL 1,500 MG in NS 100 ML IV 100 ML IV SCH ×4 (03:10→20:01)
[2020-04-15 04:10] LABS: ABG ALLEN TEST POS; ABG BASE EXCESS 8.5 mmol/L (-2.0-2.0); ABG HCO3 32.8 mmol/L (22-26)
[2020-04-15 05:12] LABS: BASOPHILS % (AUTO) 0.1 % (0.2-1.0); EOSINOPHILS # (AUTO) 0.1 x10^3/uL (0.0-0.2); EOSINOPHILS % (AUTO) 0.7 % (0.9-2.9); HEMATOCRIT 34.1 % (36.0-47.0); HEMOGLOBIN 11.1 g/dL (12.0-16.0); LYMPHOCYTES # (AUTO) 2.8 X10^3/uL (1.3-2.9); LYMPHOCYTES % (AUTO) 22.5 % (21.0-51.0); MEAN CORPUSCULAR HEMOGLOBIN 27.5 pg (27.0-34.0); MEAN CORPUSCULAR HGB CONC 32.6 g/dL (33.0-35.0); MEAN CORPUSCULAR VOLUME 84.5 fL (80.0-100.0); MEAN PLATELET VOLUME 8.9 fL (7.4-11.0); MONOCYTES # (AUTO) 0.5 x10^3/uL (0.3-0.8); MONOCYTES % (AUTO) 4.3 % (0.0-13.0); NEUTROPHILS # (AUTO) 8.9 x10^3/uL (2.2-4.8); NEUTROPHILS % (AUTO) 72.4 % (42.0-75.0); PLATELET COUNT 166 X10^3/uL (150.0-450.0); RED BLOOD COUNT 4.04 X10^6/uL (3.5-5.4); RED CELL DISTRIBUTION WIDTH 13.9 % (11.6-16.5); WHITE BLOOD COUNT 12.2 X10^3/uL (3.6-10.0)
[2020-04-15 05:25] LABS: ALANINE AMINOTRANSFERASE 21 Units/L (12-78); ALBUMIN 2.1 g/dL (3.4-5.0); ALKALINE PHOSPHATASE 72 Units/L (46-116); ASPARTATE AMINO TRANSFERASE 27 Units/L (15-37); BLOOD UREA NITROGEN 27 mg/dL (7-18); CALCIUM 8.6 mg/dL (8.5-10.1); CARBON DIOXIDE 31.4 mmol/L (21-32); CHLORIDE 105 mmol/L (98-107); COR CA(FOR HYPOALB) 10.1 mg/dL (8.5-10.1); CREATININE 0.87 mg/dL (0.55-1.02); SODIUM 141 mmol/L (136-145); TOTAL PROTEIN 5.2 g/dL (6.4-8.2); eGFR NON BLACK RACES > 60 (>60)
[2020-04-15] MEDS ORDERED: LEXAPRO ONE (07:40)
[2020-04-15] MEDS: MOBIC TAB 15 MG PO SCH (08:38)
[2020-04-15] MEDS: VITAMIN D3 125 mcg (5,000 UNITS) PO SCH (08:38)
[2020-04-15] MEDS: TRICOR TAB 160 MG PO SCH (08:39)
[2020-04-15] MEDS: NORVASC TAB 10 MG PO SCH (08:39)
[2020-04-15] MEDS: NEURONTIN CAP 300 MG PO SCH ×4 (08:40→20:02)
[2020-04-15] MEDS: ZINC SULFATE PO SCH ×2 (08:40→20:01)
[2020-04-15] MEDS: PEPCID TAB 40 MG PO SCH ×2 (08:40→20:01)
[2020-04-15] MEDS: LEXAPRO PO SCH (08:41)
[2020-04-15] MEDS: LIPITOR TAB 80 MG PO SCH (08:41)
[2020-04-15] MEDS: ELIQUIS PO SCH ×2 (08:42→20:01)
[2020-04-15] MEDS: MICRO K EXTEN CAP 10 MEQ PO SCH ×2 (08:42→20:02)
[2020-04-15] MEDS: SYNTHROID 75 mcg TAB PO SCH (08:43)
[2020-04-15] MEDS: BENICAR TAB 40 MG PO SCH (08:43)
[2020-04-15] MEDS: PROTONIX INJ 40 MG VIAL IVP SCH (08:43)
[2020-04-15] MEDS: THIAMINE HCL INJ IVP SCH ×2 (08:44→20:02)
[2020-04-15] MEDS: ZEBETA TAB 5 MG PO SCH (08:44)
[2020-04-15] MEDS: LEVAQUIN PREMIX IV 750 MG 750 MG/150 ML BAG IV SCH (09:39)
[2020-04-15] MEDS: PULMICORT NEB TX 0.5 MG NEB SCH ×2 (09:52→20:25)
[2020-04-15] MEDS: NS 1000 ML 1,000 ML IV SCH (15:20)
[2020-04-15] MEDS: TYLENOL #3 TAB (W/CODEINE) PO PRN (20:02)
[2020-04-15] MEDS ORDERED: COLACE CAP 100 MG PO PRN (21:06)
[2020-04-16] MEDS: XANAX PO SCH ×4 (02:34→21:44)
[2020-04-16] MEDS: ASCORBIC ACID INJ MULTI-DOSE VIAL 1,500 MG in NS 100 ML IV 100 ML IV SCH ×4 (03:47→20:30)
[2020-04-16] MEDS: TYLENOL #3 TAB (W/CODEINE) PO PRN ×2 (03:58→17:07)
[2020-04-16 05:25] LABS: BASOPHILS % (AUTO) 0.3 % (0.2-1.0); EOSINOPHILS # (AUTO) 0.1 x10^3/uL (0.0-0.2); EOSINOPHILS % (AUTO) 0.8 % (0.9-2.9); HEMATOCRIT 33.6 % (36.0-47.0); LYMPHOCYTES # (AUTO) 1.5 X10^3/uL (1.3-2.9); LYMPHOCYTES % (AUTO) 10.1 % (21.0-51.0); MEAN CORPUSCULAR HEMOGLOBIN 27.5 pg (27.0-34.0); MEAN CORPUSCULAR HGB CONC 32.7 g/dL (33.0-35.0); MONOCYTES # (AUTO) 0.3 x10^3/uL (0.3-0.8); NEUTROPHILS # (AUTO) 13.3 x10^3/uL (2.2-4.8); NEUTROPHILS % (AUTO) 86.8 % (42.0-75.0); PLATELET COUNT 182 X10^3/uL (150.0-450.0); RED CELL DISTRIBUTION WIDTH 13.9 % (11.6-16.5); WHITE BLOOD COUNT 15.3 X10^3/uL (3.6-10.0)
[2020-04-16 05:36] LABS: ALANINE AMINOTRANSFERASE 14 Units/L (12-78); ALBUMIN 1.9 g/dL (3.4-5.0); ALKALINE PHOSPHATASE 71 Units/L (46-116); ASPARTATE AMINO TRANSFERASE 26 Units/L (15-37); BLOOD UREA NITROGEN 28 mg/dL (7-18); CALCIUM 8.5 mg/dL (8.5-10.1); CARBON DIOXIDE 28.1 mmol/L (21-32); CHLORIDE 105 mmol/L (98-107); COR CA(FOR HYPOALB) 10.2 mg/dL (8.5-10.1); CREATININE 0.88 mg/dL (0.55-1.02); SODIUM 142 mmol/L (136-145); TOTAL PROTEIN 5.2 g/dL (6.4-8.2); eGFR NON BLACK RACES > 60 (>60)
[2020-04-16 06:29] LABS: ABG BASE EXCESS 5.8 mmol/L (-2.0-2.0)
[2020-04-16 06:30] LABS: ABG HCO3 30.6 mmol/L (22-26)
[2020-04-16 06:31] LABS: ABG ALLEN TEST POS
--- NOTE | 2020-04-16 07:15 | RAD ---
HISTORYCOVID PNEUMONIASTUDYCHEST, 1 UOLAEMEUMNHEQG36/22/2021TECHNIQUEAP view of the chestFINDINGSRight IJ central line in good position.The cardiac and mediastinal contours appear stable. No significant change in left worse than right airspace and interstitial opacities. No definite pleural effusion or pneumothorax. Soft tissue attenuation limits evaluation.IMPRESSIONNo significant change.Electronically signed by: Guido Amaya (Apr 16, 2020 07:13:24)
[2020-04-16] MEDS ORDERED: LEXAPRO ONE (08:42)
[2020-04-16] MEDS: ZOSYN VIAL 3.375 GRAMS 3.375 G in NS 100 ML IV + SPIKE MINIBAG* 100 ML IV SCH ×3 (09:28→21:45)
[2020-04-16] MEDS: PULMICORT NEB TX 0.5 MG NEB SCH ×2 (09:32→20:23)
[2020-04-16] MEDS: ELIQUIS PO SCH ×2 (09:36→20:30)
[2020-04-16] MEDS: BENICAR TAB 40 MG PO SCH (09:37)
[2020-04-16] MEDS: MOBIC TAB 15 MG PO SCH (09:38)
[2020-04-16] MEDS: LEXAPRO PO SCH (09:48)
[2020-04-16] MEDS: MICRO K EXTEN CAP 10 MEQ PO SCH ×2 (09:48→20:30)
[2020-04-16] MEDS: NORVASC TAB 10 MG PO SCH (09:51)
[2020-04-16] MEDS: LIPITOR TAB 80 MG PO SCH (09:51)
[2020-04-16] MEDS: LEVAQUIN PREMIX IV 750 MG 750 MG/150 ML BAG IV SCH (09:52)
[2020-04-16] MEDS: THIAMINE HCL INJ IVP SCH ×2 (09:53→20:30)
[2020-04-16] MEDS: NEURONTIN CAP 300 MG PO SCH ×4 (09:54→20:30)
[2020-04-16] MEDS: ZINC SULFATE PO SCH ×2 (09:54→20:31)
[2020-04-16] MEDS: VITAMIN D3 125 mcg (5,000 UNITS) PO SCH (09:55)
[2020-04-16] MEDS: TRICOR TAB 160 MG PO SCH (09:55)
[2020-04-16] MEDS: SYNTHROID 75 mcg TAB PO SCH (09:56)
[2020-04-16] MEDS: PEPCID TAB 40 MG PO SCH ×2 (09:57→20:30)
[2020-04-16] MEDS: ZEBETA TAB 5 MG PO SCH (10:01)
[2020-04-16] MEDS: PROTONIX INJ 40 MG VIAL IVP SCH (10:01)
[2020-04-16] MEDS: NS 1000 ML 1,000 ML IV SCH ×2 (10:30→15:38)
[2020-04-16] MEDS: MORPHINE SULFATE INJ 2 MG INJ IVP PRN (19:09)
[2020-04-16] MEDS: ATIVAN INJ 2 MG VIAL IVP PRN (22:04)
[2020-04-17] MEDS: ASCORBIC ACID INJ MULTI-DOSE VIAL 1,500 MG in NS 100 ML IV 100 ML IV SCH ×4 (02:22→21:35)
[2020-04-17] MEDS: MORPHINE SULFATE INJ 2 MG INJ IVP PRN ×3 (02:23→10:45)
[2020-04-17 04:59] LABS: ABG BASE EXCESS 5.9 mmol/L (-2.0-2.0)
[2020-04-17 05:01] LABS: ABG ALLEN TEST POS; ABG HCO3 31.7 mmol/L (22-26)
[2020-04-17] MEDS: ZOSYN VIAL 3.375 GRAMS 3.375 G in NS 100 ML IV + SPIKE MINIBAG* 100 ML IV SCH ×3 (05:51→21:35)
[2020-04-17] MEDS: XANAX PO SCH ×2 (05:51→13:30)
[2020-04-17 06:19] LABS: BASOPHILS % (AUTO) 0.3 % (0.2-1.0); EOSINOPHILS # (AUTO) 0.1 x10^3/uL (0.0-0.2); HEMATOCRIT 36.8 % (36.0-47.0); HEMOGLOBIN 12.3 g/dL (12.0-16.0); LYMPHOCYTES # (AUTO) 0.8 X10^3/uL (1.3-2.9); LYMPHOCYTES % (AUTO) 8.7 % (21.0-51.0); MEAN CORPUSCULAR HGB CONC 33.5 g/dL (33.0-35.0); MEAN CORPUSCULAR VOLUME 83.6 fL (80.0-100.0); MONOCYTES # (AUTO) 0.2 x10^3/uL (0.3-0.8); MONOCYTES % (AUTO) 2.6 % (0.0-13.0); NEUTROPHILS # (AUTO) 7.7 x10^3/uL (2.2-4.8); NEUTROPHILS % (AUTO) 87.4 % (42.0-75.0); PLATELET COUNT 139 X10^3/uL (150.0-450.0); RED CELL DISTRIBUTION WIDTH 14.4 % (11.6-16.5); WHITE BLOOD COUNT 8.9 X10^3/uL (3.6-10.0)
[2020-04-17 06:32] LABS: ALANINE AMINOTRANSFERASE 11 Units/L (12-78); ALBUMIN 1.7 g/dL (3.4-5.0); ALKALINE PHOSPHATASE 69 Units/L (46-116); ASPARTATE AMINO TRANSFERASE 49 Units/L (15-37); BLOOD UREA NITROGEN 31 mg/dL (7-18); CALCIUM 8.6 mg/dL (8.5-10.1); CARBON DIOXIDE 28.1 mmol/L (21-32); CHLORIDE 109 mmol/L (98-107); COR CA(FOR HYPOALB) 10.4 mg/dL (8.5-10.1); CREATININE 0.91 mg/dL (0.55-1.02); SODIUM 144 mmol/L (136-145); TOTAL PROTEIN 5.2 g/dL (6.4-8.2); eGFR NON BLACK RACES > 60 (>60)
[2020-04-17] MEDS: PULMICORT NEB TX 0.5 MG NEB SCH ×2 (07:50→20:00)
[2020-04-17] MEDS: BENICAR TAB 40 MG PO SCH ×2 (08:44→08:45)
[2020-04-17] MEDS: ELIQUIS PO SCH (08:45)
[2020-04-17] MEDS: MOBIC TAB 15 MG PO SCH (08:46)
[2020-04-17] MEDS: LIPITOR TAB 80 MG PO SCH (08:46)
[2020-04-17] MEDS: PEPCID TAB 40 MG PO SCH (08:47)
[2020-04-17] MEDS: NEURONTIN CAP 300 MG PO SCH ×3 (08:47→16:33)
[2020-04-17] MEDS: NORVASC TAB 10 MG PO SCH (08:47)
[2020-04-17] MEDS: MICRO K EXTEN CAP 10 MEQ PO SCH (08:48)
[2020-04-17] MEDS: SYNTHROID 75 mcg TAB PO SCH (08:53)
[2020-04-17] MEDS: LEXAPRO PO SCH (08:54)
[2020-04-17] MEDS: TRICOR TAB 160 MG PO SCH (08:54)
[2020-04-17] MEDS: ZEBETA TAB 5 MG PO SCH (08:54)
[2020-04-17] MEDS: ZINC SULFATE PO SCH (08:54)
[2020-04-17] MEDS: VITAMIN D3 125 mcg (5,000 UNITS) PO SCH (08:54)
[2020-04-17] MEDS: PROTONIX INJ 40 MG VIAL IVP SCH (10:30)
[2020-04-17] MEDS: LEVAQUIN PREMIX IV 750 MG 750 MG/150 ML BAG IV SCH (10:30)
[2020-04-17] MEDS: THIAMINE HCL INJ IVP SCH (10:30)
[2020-04-17] MEDS: ATIVAN INJ 2 MG VIAL IVP PRN (10:30)
[2020-04-17] MEDS ORDERED: DIPRIVAN VIAL 20 ML ONE (11:45)
[2020-04-17] MEDS ORDERED: QUELICIN (OR ANECTINE) ONE (11:46)
[2020-04-17] MEDS: NORCURON INJ 10 MG VIAL 50 MG in NS 50 ML IV 50 ML IV PRN ×2 (12:05→17:02)
[2020-04-17] MEDS: VERSED IV PREMIX 100 MG/100 ML IV.SOLN IV PRN (12:05)
--- NOTE | 2020-04-17 12:18 | RAD ---
HISTORYET TUBE PLACEMENTSTUDYCHEST, 1 PNTHOHUYBTJFEZ62/25/2021FINDINGSBilateral opacity in the lungs is much more dense and extensive than on the prior study. This is compatible with progressed pneumonia. No obvious pneumothorax or signific ant effusion.Vascular calcifications are present compatible with atherosclerosis. I cannot evaluate the heart size.Bones are unremarkable.The endotracheal tube is anatomic in position in the trachea. R ight jugular central venous catheter is in the expected location of the superior vena cava. EKG leads are noted.IMPRESSION1. Intubation2. Progressed pneumoniaElectronically signed by: Manuel Robles (Apr 17, 2020 12:16:35)
[2020-04-17] MEDS ORDERED: NORCURON INJ 10 MG VIAL IV ONE (13:47)
[2020-04-17] MEDS: DECADRON TAB PO SCH (15:57)
[2020-04-17] MEDS: NS 1000 ML 1,000 ML IV SCH (15:57)
[2020-04-17 16:23] LABS: ABG BASE EXCESS 2.6 mmol/L (-2.0-2.0)
[2020-04-17 16:24] LABS: ABG HCO3 30.8 mmol/L (22-26)
[2020-04-17 16:25] LABS: ABG ALLEN TEST POS
--- NOTE | 2020-04-17 17:49 | RAD ---
EXAM: ABDOMEN X-RAY (or KUB)HISTORY: Verification of NG tube position status post tube placement. Covid pneumonia. Hypoxia.TECHNIQUE: Supine viewCOMPARISON: None.FINDINGS:Note: Exam degraded by patient rotation to the rightNasogastric tube is noted with the distal tip in the far right upper quadrant, inferior/lateral to cholecystectomy tips; cannot rule out extraluminal positioning. Correlation with CT may be beneficial for further characterization. Alternatively, follow up x-ray after TPA administration of sterile contrast material may be beneficial to rule out contrast extravasation.There is suggestion of extraluminal streaky air collections in the right upper quadrant; cannot rule out viscus perforation versus sequela of barotrauma.The bowel gas pattern is nonspecific and nonobstructive. There is no gross organomegaly, free intraperitoneal air, or suspicious calcifications seen. The visualized bony structures are within normal limits. Surgical clips are seen in the right upper quadrant in keeping with prior cholecystectomy.Extensive bilateral lung parenchymal interstitial infiltrates are noted in keeping with Covid pneumonia in the appropriate clinical setting.IMPRESSION:1. Nasogastric tube is noted with the distal tip in the far right upper quadrant, inferior/lateral to cholecystectomy tips; cannot rule out extraluminal positioning. Correlation with CT may be beneficial for further characterization. Alternatively, follow up x-ray after TPA administration of sterile contrast material may be beneficial to rule out contrast extravasation.2. Suggestion of extraluminal streaky air collections in the right upper quadrant; cannot rule out viscus perforation versus sequela of barotrauma.Electronically signed by: Tamiko Cates (Apr 17, 2020 17:47:07)
[2020-04-17] MEDS: LACRI-LUBE S.O.P. AFFEYE SCH (21:35)
[2020-04-18] MEDS: LOVENOX INJ 40 MG SYR SC SCH ×2 (00:26→08:50)
[2020-04-18] MEDS: MILK OF MAGNESIA PO SCH ×2 (01:59→21:07)
[2020-04-18] MEDS: MICRO K EXTEN CAP 10 MEQ PO SCH ×2 (01:59→08:27)
[2020-04-18] MEDS: PEPCID TAB 40 MG PO SCH ×3 (02:00→21:07)
[2020-04-18] MEDS: NEURONTIN CAP 300 MG PO SCH ×5 (02:00→21:07)
[2020-04-18] MEDS: ZINC SULFATE PO SCH ×3 (02:01→21:07)
[2020-04-18] MEDS: XANAX PO SCH ×4 (02:01→21:08)
[2020-04-18] MEDS: NS 1000 ML 1,000 ML IV SCH ×3 (02:30→16:23)
[2020-04-18] MEDS: ASCORBIC ACID INJ MULTI-DOSE VIAL 1,500 MG in NS 100 ML IV 100 ML IV SCH ×4 (02:45→21:06)
[2020-04-18] MEDS: ZOSYN VIAL 3.375 GRAMS 3.375 G in NS 100 ML IV + SPIKE MINIBAG* 100 ML IV SCH ×3 (05:30→21:19)
[2020-04-18 05:34] LABS: BASOPHILS % (AUTO) 0.2 % (0.2-1.0); HEMATOCRIT 34.1 % (36.0-47.0); HEMOGLOBIN 10.8 g/dL (12.0-16.0); LYMPHOCYTES # (AUTO) 1.4 X10^3/uL (1.3-2.9); LYMPHOCYTES % (AUTO) 8.4 % (21.0-51.0); MEAN CORPUSCULAR HEMOGLOBIN 27.3 pg (27.0-34.0); MEAN CORPUSCULAR HGB CONC 31.7 g/dL (33.0-35.0); MEAN CORPUSCULAR VOLUME 86.3 fL (80.0-100.0); MEAN PLATELET VOLUME 8.7 fL (7.4-11.0); MONOCYTES # (AUTO) 0.6 x10^3/uL (0.3-0.8); MONOCYTES % (AUTO) 3.7 % (0.0-13.0); NEUTROPHILS # (AUTO) 14.7 x10^3/uL (2.2-4.8); NEUTROPHILS % (AUTO) 87.7 % (42.0-75.0); PLATELET COUNT 348 X10^3/uL (150.0-450.0); RED BLOOD COUNT 3.95 X10^6/uL (3.5-5.4); RED CELL DISTRIBUTION WIDTH 14.7 % (11.6-16.5); WHITE BLOOD COUNT 16.8 X10^3/uL (3.6-10.0)
[2020-04-18 05:44] LABS: ALBUMIN 1.6 g/dL (3.4-5.0); CALCIUM 8.7 mg/dL (8.5-10.1); CARBON DIOXIDE 26.7 mmol/L (21-32); COR CA(FOR HYPOALB) 10.6 mg/dL (8.5-10.1); CREATININE 2.34 mg/dL (0.55-1.02)
--- NOTE | 2020-04-18 06:25 | RAD ---
HISTORYVENTILATOR DEPENDENTSTUDYCHEST, 1 VIEWCOMPARISONOne day prior.TECHNIQUEAP view of the chestFINDINGSET tube in good position. Right IJ central line in good position. Patient is rotated. There is development of severe subcutaneous emphysema in the neck and chest. Severe pneumomediastinum. There is likely interval improvement in diffuse bilateral airspace disease. Curvilinear lucencies under both lung bases suspicious for small pneumothoraces. No definite tension.IMPRESSIONSignificant subcutaneous emphysema and pneumomediastinum. Mild improvement in diffuse bilateral airspace disease. Curvilinear lucencies under both lung bases suspicious for small pneumothoraces. Consider CT for confirmation.Electronically signed by: Guido Amaya (Apr 18, 2020 06:23:37)
[2020-04-18 06:42] LABS: ABG BASE EXCESS -3.2 mmol/L (-2.0-2.0); ABG HCO3 26.5 mmol/L (22-26)
[2020-04-18 06:43] LABS: ABG ALLEN TEST POS
[2020-04-18 07:22] LABS: ABG BASE EXCESS -2.7 mmol/L (-2.0-2.0); ABG HCO3 26.4 mmol/L (22-26)
[2020-04-18 07:25] LABS: ABG ALLEN TEST POS
--- NOTE | 2020-04-18 07:36 | RAD ---
HISTORYFollow up NG tube gstqysgpoHBANXYuzbdozMJEJGDVSZV77/26/2021FINDINGSThe previously noted nasogastric tube is no longer i dentified. There are new areas of air density projected under the partially visualized right hemidiap hragm and in the left upper quadrant. A pneumoperitoneum is possible. CT abdomen pelvis is recommende d for further evaluation. Bilateral lower lobe lung infiltrates identified. The abdominal bowel gas p attern is nonspecific.IMPRESSIONUnusual air densities in the right upper quadrant and left upper quad rant. Pneumoperitoneum which could indicate perforated viscus not excluded. CT abdomen pelvis is deanne mmended for further evaluation.Electronically signed by: EDUARDO RANGEL (Apr 18, 2020 07:35:41)
[2020-04-18] MEDS ORDERED: NS 1000 ML 1,000 ML IV ONE (08:00)
[2020-04-18] MEDS: PULMICORT NEB TX 0.5 MG NEB SCH ×2 (08:15→20:25)
[2020-04-18] MEDS: LACRI-LUBE S.O.P. AFFEYE SCH ×2 (08:18→21:06)
[2020-04-18] MEDS: BENICAR TAB 40 MG PO SCH (08:25)
[2020-04-18] MEDS: TRICOR TAB 160 MG PO SCH (08:26)
[2020-04-18] MEDS: LEXAPRO PO SCH (08:26)
[2020-04-18] MEDS: DECADRON TAB PO SCH ×2 (08:26→08:29)
[2020-04-18] MEDS: ZEBETA TAB 5 MG PO SCH (08:27)
[2020-04-18] MEDS: SYNTHROID 75 mcg TAB PO SCH (08:27)
[2020-04-18] MEDS: LIPITOR TAB 80 MG PO SCH (08:27)
[2020-04-18] MEDS: MOBIC TAB 15 MG PO SCH (08:28)
[2020-04-18] MEDS: VITAMIN D3 125 mcg (5,000 UNITS) PO SCH (08:29)
[2020-04-18] MEDS: NORCURON INJ 10 MG VIAL 50 MG in NS 50 ML IV 50 ML IV PRN (08:40)
[2020-04-18] MEDS: VERSED IV PREMIX 100 MG/100 ML IV.SOLN IV PRN (08:40)
[2020-04-18] MEDS: LEVAQUIN PREMIX IV 750 MG 750 MG/150 ML BAG IV SCH (08:50)
[2020-04-18] MEDS: PROTONIX INJ 40 MG VIAL IVP SCH (08:50)
[2020-04-18] MEDS: LEVOPHED INJ 8 MG in D5W 250 ML IV 242 ML IV PRN (09:30)
[2020-04-18] MEDS ORDERED: THIAMINE HCL INJ IVP SCH (10:00)
--- NOTE | 2020-04-18 10:07 | RAD ---
HISTORYF/U FROM PRIOR KUB EXAMSTUDYLATERAL ABDOMENCOMPARISONAbdominal film 4:37 a.m. April 18, 2020 and chest film April 17, 2020 at 11:59 a.m.. And portable chest April 18, 2020FINDINGSLateral decubitus view does show abnormal air along the right flank. This is not definitely pneumoperitoneum i.e. it is suggestive of air in the bowel loop but some of the air is seen extraperitoneal in the flank. Alternatively it could be dissection of air from the subcutaneous emphysema that seen on this morning's chest film. Subcutaneous emphysema was seen the left upper lateral thorax.. No definite pneumothorax is seen but there is air along the right hemidiaphragm the mid could represent a subpulmonic pneumothorax. No pneumothorax or subcutaneous emphysema was seen on yesterday's chest film. Right internal jugular line is in place. The infiltrates bilaterally are unchanged from yesterday morning's film. Pneumomediastinum is seen along the left heart border and heart base. There is also suspicion of a tiny right apical pneumothoraxIMPRESSIONNo definite evidence of pneumoperitoneum on the [id number]-[id number] decubitus film. The air that is seen most superiorly in the left upper quadrant appears to be in bowel.The 2nd collection of air appears to be subcutaneous extraperitoneal in the left flank..Electronically signed by: ILIA CLARK (Apr 18, 2020 10:06:09)
[2020-04-18] MEDS: SOLU-Cortef INJ IVP SCH ×3 (12:24→21:08)
[2020-04-18 13:08] LABS: BILIRUBIN,URINE NEGATIVE (NEGATIVE); BLOOD/HEMOGLOBIN,URINE 5+ (NEGATIVE); GLUCOSE, URINE NEGATIVE (NEGATIVE); KETONES,URINE 1+ (NEGATIVE); LEUKOCYTE ESTERASE ,URINE 3+ (NEGATIVE); NITRITES,URINE POSITIVE (NEGATIVE); PROTEIN,URINE 3+ (NEGATIVE); UROBILINOGEN,URINE 1+ (NORMAL)
[2020-04-18 13:20] LABS: APPEARANCE,URINE HAZY (CLEAR); COLOR,URINE BROWN (YELLOW)
[2020-04-18 13:22] LABS: BACTERIA,URINE TRACE /HPF (NEGATIVE); RBC,URINE TNTC /HPF (0-3); SQUAMOUS EPITHELIAL CELL,UR FEW /HPF (NEGATIVE)
[2020-04-18 13:23] LABS: YEAST,URINE MODERATE /HPF (NEGATIVE)
[2020-04-18 16:36] LABS: CALCIUM 8.3 mg/dL (8.5-10.1); CARBON DIOXIDE 22.4 mmol/L (21-32); CREATININE 2.64 mg/dL (0.55-1.02)
--- NOTE | 2020-04-18 21:13 | DR.UPDATE ---
H&P Update History and Physical Update: History and Physical reviewed and patient examined. Changes noted: NO Yes with the following:will place art line H&P Reviewed: Yes Patient was examined?: Yes Procedures (ALL) - Arterial Line Consent obtained: verbal consent Time out performed: Yes Size(gauge): 20 Technique used: guided wire technique Post-procedure: dry sterile dressing placed Patient tolerated procedure: Yes Site: Left, radial
[2020-04-19] MEDS: ASCORBIC ACID INJ MULTI-DOSE VIAL 1,500 MG in NS 100 ML IV 100 ML IV SCH ×4 (02:58→21:13)
[2020-04-19] MEDS: NS 1000 ML 1,000 ML IV SCH ×3 (02:59→19:42)
[2020-04-19] MEDS: LEVOPHED INJ 8 MG in D5W 250 ML IV 242 ML IV PRN (03:18)
[2020-04-19] MEDS: SOLU-Cortef INJ IVP SCH ×4 (03:46→21:14)
[2020-04-19 04:52] LABS: ABG BASE EXCESS -5.4 mmol/L (-2.0-2.0); ABG HCO3 22.6 mmol/L (22-26)
[2020-04-19] MEDS: ZOSYN VIAL 3.375 GRAMS 3.375 G in NS 100 ML IV + SPIKE MINIBAG* 100 ML IV SCH ×3 (05:18→22:10)
[2020-04-19] MEDS: XANAX PO SCH ×3 (05:18→21:14)
[2020-04-19 05:38] LABS: BASOPHILS % (AUTO) 0.3 % (0.2-1.0); EOSINOPHILS % (AUTO) 0.1 % (0.9-2.9); HEMATOCRIT 31.4 % (36.0-47.0); HEMOGLOBIN 9.9 g/dL (12.0-16.0); LYMPHOCYTES # (AUTO) 1.3 X10^3/uL (1.3-2.9); LYMPHOCYTES % (AUTO) 8.9 % (21.0-51.0); MEAN CORPUSCULAR HEMOGLOBIN 27.3 pg (27.0-34.0); MEAN CORPUSCULAR HGB CONC 31.6 g/dL (33.0-35.0); MEAN CORPUSCULAR VOLUME 86.3 fL (80.0-100.0); MEAN PLATELET VOLUME 8.1 fL (7.4-11.0); MONOCYTES # (AUTO) 0.6 x10^3/uL (0.3-0.8); MONOCYTES % (AUTO) 3.8 % (0.0-13.0); NEUTROPHILS % (AUTO) 86.9 % (42.0-75.0); PLATELET COUNT 272 X10^3/uL (150.0-450.0); RED BLOOD COUNT 3.64 X10^6/uL (3.5-5.4); RED CELL DISTRIBUTION WIDTH 15.2 % (11.6-16.5)
[2020-04-19 05:53] LABS: ALBUMIN 1.3 g/dL (3.4-5.0); CALCIUM 8.5 mg/dL (8.5-10.1); CARBON DIOXIDE 24.5 mmol/L (21-32); COR CA(FOR HYPOALB) 10.7 mg/dL (8.5-10.1); CREATININE 3.08 mg/dL (0.55-1.02); MAGNESIUM 2.7 mg/dL (1.7-2.9); TOTAL PROTEIN 5.7 g/dL (6.4-8.2)
--- NOTE | 2020-04-19 07:47 | RAD ---
HISTORYVENTILATOR DEPENDENTSTUDYCHEST, 1 VIEWCOMPARISONPortable chest April 18, 2020.FINDINGSThe trachea is midline. The ET tube is in good position. A right internal jugular line is been placed since yesterday with the tip in the superior vena cava. No pneumothorax is observed. The cardiac silhouette is unremarkable . The l bilateral diffuse pulmonary infiltrates are stable on the left but have mildly increased on the right compared to yesterdays film. The subcutaneous emphysema has decreased significantly over the chest wall and lower neck. This pneumomediastinum has also significantly decreased. No pneumothorax is seen. The bony thorax is unremarkable.IMPRESSIONET tube right internal jugular line in good position. Bilateral infiltrates consistent with pneumonia.Improvement in subcutaneous emphysema and mediastinal emphysema.No definite pneumothorax is seen at this time.Electronically signed by: ILIA CLARK (Apr 19, 2020 07:45:33)
[2020-04-19] MEDS: PULMICORT NEB TX 0.5 MG NEB SCH ×2 (09:13→20:58)
[2020-04-19] MEDS: LACRI-LUBE S.O.P. AFFEYE SCH ×2 (09:25→21:13)
[2020-04-19] MEDS: BENICAR TAB 40 MG PO SCH (09:25)
[2020-04-19] MEDS: LEVAQUIN PREMIX IV 750 MG 750 MG/150 ML BAG IV SCH (09:26)
[2020-04-19] MEDS: LIPITOR TAB 80 MG PO SCH (09:27)
[2020-04-19] MEDS: LEXAPRO PO SCH (09:27)
[2020-04-19] MEDS: LOVENOX INJ 40 MG SYR SC SCH (09:29)
[2020-04-19] MEDS: NEURONTIN CAP 300 MG PO SCH ×4 (09:29→21:14)
[2020-04-19] MEDS: MOBIC TAB 15 MG PO SCH (09:29)
[2020-04-19] MEDS: SYNTHROID 75 mcg TAB PO SCH (09:30)
[2020-04-19] MEDS: PEPCID TAB 40 MG PO SCH (09:30)
[2020-04-19] MEDS: PROTONIX INJ 40 MG VIAL IVP SCH (09:30)
[2020-04-19] MEDS: VITAMIN D3 125 mcg (5,000 UNITS) PO SCH (09:31)
[2020-04-19] MEDS: ZEBETA TAB 5 MG PO SCH (09:32)
[2020-04-19] MEDS: ZINC SULFATE PO SCH ×2 (09:32→21:14)
[2020-04-19] MEDS: NORCURON INJ 10 MG VIAL 50 MG in NS 50 ML IV 50 ML IV PRN (11:39)
[2020-04-19 19:40] LABS: CALCIUM 8.6 mg/dL (8.5-10.1); CARBON DIOXIDE 23.8 mmol/L (21-32); CREATININE 3.58 mg/dL (0.55-1.02)
[2020-04-19] MEDS ORDERED: LASIX IVP STA (20:02)
[2020-04-19] MEDS: MILK OF MAGNESIA PO SCH (21:14)
[2020-04-20] MEDS: NS 1000 ML 1,000 ML IV SCH ×2 (01:10→18:39)
[2020-04-20] MEDS ORDERED: LASIX IVP ONE ×3 (03:12→08:00)
[2020-04-20] MEDS: ASCORBIC ACID INJ MULTI-DOSE VIAL 1,500 MG in NS 100 ML IV 100 ML IV SCH ×4 (04:41→21:23)
[2020-04-20] MEDS: SOLU-Cortef INJ IVP SCH ×4 (04:41→21:23)
[2020-04-20] MEDS: XANAX PO SCH ×3 (05:40→21:24)
[2020-04-20 05:47] LABS: ALBUMIN 1.1 g/dL (3.4-5.0); CALCIUM 8.7 mg/dL (8.5-10.1); CARBON DIOXIDE 24.5 mmol/L (21-32); CREATININE 4.02 mg/dL (0.55-1.02); TOTAL PROTEIN 5.4 g/dL (6.4-8.2)
[2020-04-20 05:56] LABS: BASOPHILS % (AUTO) 0.1 % (0.2-1.0); EOSINOPHILS % (AUTO) 0.1 % (0.9-2.9); HEMATOCRIT 29.6 % (36.0-47.0); HEMOGLOBIN 9.7 g/dL (12.0-16.0); LYMPHOCYTES # (AUTO) 0.9 X10^3/uL (1.3-2.9); LYMPHOCYTES % (AUTO) 8.6 % (21.0-51.0); MEAN CORPUSCULAR HEMOGLOBIN 28.2 pg (27.0-34.0); MEAN CORPUSCULAR HGB CONC 32.7 g/dL (33.0-35.0); MEAN CORPUSCULAR VOLUME 86.3 fL (80.0-100.0); MEAN PLATELET VOLUME 7.6 fL (7.4-11.0); MONOCYTES # (AUTO) 0.4 x10^3/uL (0.3-0.8); MONOCYTES % (AUTO) 3.9 % (0.0-13.0); NEUTROPHILS # (AUTO) 8.9 x10^3/uL (2.2-4.8); NEUTROPHILS % (AUTO) 87.3 % (42.0-75.0); PLATELET COUNT 185 X10^3/uL (150.0-450.0); RED BLOOD COUNT 3.43 X10^6/uL (3.5-5.4); RED CELL DISTRIBUTION WIDTH 15.2 % (11.6-16.5); WHITE BLOOD COUNT 10.1 X10^3/uL (3.6-10.0)
[2020-04-20] MEDS: ZOSYN VIAL 3.375 GRAMS 3.375 G in NS 100 ML IV + SPIKE MINIBAG* 100 ML IV SCH ×3 (06:09→21:23)
[2020-04-20 06:19] LABS: ABG BASE EXCESS -8.3 mmol/L (-2.0-2.0); ABG HCO3 21.6 mmol/L (22-26)
--- NOTE | 2020-04-20 06:26 | RAD ---
HISTORYFollow up respiratory failureSTUDYChest AP ocabpmfgACLOVBXJBR56/28/2021FINDINGSPatient is rotated severely to the left. There is an endotracheal tube in good position. There is a right IJ line in good position. Heart size difficult to assess due to obscuration of both heart borders by diffuse bilateral alveolar infiltrates and also due to rotat ion. The degree and distribution of infiltrates are unchanged considering a difference in film techni que. No pleural effusions are identified. Bony thorax is unremarkable.IMPRESSIONNo change diffuse mario ateral alveolar filling when compared to the prior examinationElectronically signed by: EDURADO RANGEL (Apr 20, 2020 06:25:27)
[2020-04-20] MEDS ORDERED: NS 1000 ML 1,000 ML IV ONE (06:47)
[2020-04-20] MEDS ORDERED: PEPCID TAB 40 MG PO SCH (09:00)
[2020-04-20] MEDS: PULMICORT NEB TX 0.5 MG NEB SCH ×2 (09:00→20:49)
[2020-04-20] MEDS: BENICAR TAB 40 MG PO SCH (09:09)
[2020-04-20] MEDS: LACRI-LUBE S.O.P. AFFEYE SCH ×2 (09:09→21:23)
[2020-04-20] MEDS: LEXAPRO PO SCH (09:09)
[2020-04-20] MEDS: LIPITOR TAB 80 MG PO SCH (09:09)
[2020-04-20] MEDS: NEURONTIN CAP 300 MG PO SCH ×4 (09:10→21:24)
[2020-04-20] MEDS: MOBIC TAB 15 MG PO SCH (09:10)
[2020-04-20] MEDS: ZINC SULFATE PO SCH ×2 (09:11→21:24)
[2020-04-20] MEDS: SYNTHROID 75 mcg TAB PO SCH (09:11)
[2020-04-20] MEDS: VITAMIN D3 125 mcg (5,000 UNITS) PO SCH (09:11)
[2020-04-20] MEDS: ZEBETA TAB 5 MG PO SCH (09:12)
[2020-04-20] MEDS: PROTONIX INJ 40 MG VIAL IVP SCH (09:34)
[2020-04-20 10:40] LABS: ABG BASE EXCESS -8.1 mmol/L (-2.0-2.0); ABG HCO3 19.6 mmol/L (22-26)
[2020-04-20] MEDS: LOVENOX INJ 40 MG SYR SC SCH (13:30)
[2020-04-20] MEDS: MILK OF MAGNESIA PO SCH (21:24)
[2020-04-21] MEDS: NS 1000 ML 1,000 ML IV SCH
[2020-04-21] MEDS: NORCURON INJ 10 MG VIAL 50 MG in NS 50 ML IV 50 ML IV PRN ×2
[2020-04-21 02:17] VITALS: BP 152/67
--- NOTE | 2020-04-21 03:01 | RAD ---
PROCEDURE: Chest X-ray 1 View .HISTORY: Intubation and COVID-19 pneumonia.TECHNIQUE: AP portable view done at 2:34 a.m..COMPARISON: 04/20/2020.TECHNICAL QUALITY: Satisfactory .FINDINGS:Endotracheal tube tip 5 cm above the felisha. Right internal jugular central venous line tip projected over the superior cavoatrial junction.Normal size heart.Dense consolidation throughout both lung maurer similar to increased compared to previous study. No pleural fluid or pneumothorax.IMPRESSION:1. Good endotracheal tube placement.2. Bilateral pneumonia.Electronically signed by: Brayden Ramos (Apr 21, 2020 02:59:04)
[2020-04-21] MEDS ORDERED: LEVAQUIN PREMIX IV 750 MG 750 MG/150 ML BAG IV SCH (11:00)
== END 2020-04-21 04:00 | disposition short-term general hospital (02) | DRG 208 ==
LOC: ER 12:37 → OBS 16:01 → MED/SURG 04-11 18:14 → ICU 04-12 17:57
PROVIDERS: ADMIT Obstetrics & Gynecology Obstetrics; ATTEND Obstetrics & Gynecology Obstetrics
DX: E78.5 Hyperlipidemia, unspecified; I87.2 Venous insufficiency (chronic) (peripheral); I10 Essential (primary) hypertension; F41.9 Anxiety disorder, unspecified; U07.1 COVID-19; J12.81 Pneumonia due to SARS-associated coronavirus; N17.9 Acute kidney failure, unspecified; J96.00 Acute respiratory failure, unspecified whether with hypoxia or hypercapnia